=== PATIENT | female | born 1930 | race Caucasian/White ===

== ENCOUNTER 2017-05-22 14:36 | Observation (INO) | payer MEDICARE, BC ==
[~2017-05-22] VITALS: Ht 149.9 cm; Wt 49.9 kg
--- NOTE | ~2017-05-22 | CR72 ---
[facility] A Service of [facility] & [facility] RADIOLOGY TEXT RESULTS PATIENT: PARISH ZUNIGA LOCATION: [facility] 302- : [birth year] UNIT #: [id number] AGE: [address]: NEERU LAU MD SEX: F ORDER DR: [id number] [facility] [address] [place], [place] [address] [id number] MR#: [id number] Acc #: [id number] NAME: PARISH ZUNIGA. : 1930 SEX: F STUDY DATE/TIME: 05/22/2017 14:59 UNIT: [facility] ROOM: STUDY DESCRIPTION: CR Chest Single View Portable Attending Physician: Kai Brown M.D. Ordering Physician: Kai Brown M.D. Primary Care Physician: Lindsey Ramirez M.D. MEDICAL IMAGING REPORT This report is preliminary unless electronic signature is present EXAM Portable chest x-ray 05/22/2017 HISTORY Weakness, hypoxia, short of air. Found unresponsive at hair salon today. AP radiograph of the chest is presented. COMPARISON STUDIES Comparison 03/25/2017 FINDINGS No acute-appearing bony abnormality. Degenerative changes in the spine. Mild cardiac enlargement. Mildly tortuous descending thoracic aorta. The lungs well inflated. Ill-defined patchy densities right lower lung zone may represent atelectasis or mild pneumonitis. Given the patient's stated history, correlate with any concern for possible aspiration. There is no dense airspace disease, pleural effusion or pneumothorax. No suspicious nodule. Dictated by... Sergio Peck M.D. THIS IS AN ELECTRONICALLY VERIFIED REPORT Sergio Peck M.D. at 05/22/2017 6:31 PM Lesley TD: 05/22/2017 17:47 JOB #: [id number] MEDICAL IMAGING REPORT Page 1 of 1 COPY
--- NOTE | ~2017-05-22 | EKG ---
PATIENT: PARISH ZUNIGA UNIT #: [id number] Ventricular Rate: 85 BPM Atrial Rate: 85 BPM P-R Interval: 174 ms QRS Duration: 86 ms Q-T Interval: 384 ms QTC Calculation(Bezet): 456 ms P [place]: 31 degrees Calculated R [place]: 8 degrees Calculated T [place]: 52 degrees Diagnosis Line: Normal sinus rhythm Diagnosis Line: Low voltage QRS Diagnosis Line: Borderline ECG Diagnosis Line: No previous ECGs available Diagnosis Line: Confirmed by JAX HOWARD MD ([id number]) on Diagnosis Line: 05/23/2017 7:31:21 AM INTERPRETING MD: LEE PRESSLEY
--- NOTE | ~2017-05-22 | HP ---
Unit #: [id number] #: [id number] Patient: PARISH ZUNIGA [id number] [address] [address] [id number] I MR#: [id number] NAME: PARISH ZUNIGA. ROOM: 302 Age: 87 Sex: F Admission Date: 05/22/2017 : 1930 Attending Physician: Neeru Bolden M.D. Primary Care Physician: Lindsey Ramirez M.D. HISTORY AND PHYSICAL CHIEF COMPLAINT Altered mental status. HISTORY OF PRESENT ILLNESS The patient is an 87-year-old female with a history of hypertension and CAD brought to the emergency room from the [facility]. The patient was having her hair washed (1) and the patient became more unresponsive. The patient denies any loss of consciousness and denies any head trauma. The patient was found to have a UTI and acute renal failure and is being admitted for the above reasons. Patient denies any nausea, vomiting, abdominal pain, fever, or chills. Patient is confused and thinks her daughters are sisters. PAST MEDICAL HISTORY 1. Hypertension. 2. Coronary artery disease. PAST SURGICAL HISTORY 1. Cholecystectomy. 2. Right femur surgery. HOME MEDICATIONS 1. Cozaar. 2. Mobic. 3. Albuterol. 4. Vancomycin. 5. Gabapentin. 6. Lortab. 7. Lopressor. ALLERGIES No known drug allergies. SOCIAL HISTORY No history of smoking, drinking, or any illicit drug abuse. FAMILY HISTORY Reviewed and none. REVIEW OF SYSTEMS Patient is confused. She denies any nausea or vomiting. Patient was found to be hypotensive at the time of EMS arrival with blood pressure down to the 70s. Other systems were reviewed and the remaining are negative. Unit #: [id number] #: [id number] Patient: PARISH ZUNIGA PHYSICAL EXAMINATION GENERAL: Patient is lying in bed not in acute distress. VITAL SIGNS: Temperature 98.5, blood pressure 106/67, pulse 83, respiratory rate 15, and saturating 94% on room air. HEENT: Head atraumatic, normocephalic. Pupils equal, round, and reactive to light and accommodation. Dry mucous membranes. NECK: Supple. LUNGS: Decreased air entry at the bases. HEART: Regular rate and rhythm. ABDOMEN: Soft. Positive bowel sounds. EXTREMITIES: No cyanosis, no clubbing. NEUROLOGIC: Awake and alert. DIAGNOSTIC STUDIES LABORATORY: Glucose 118. Urinalysis is positive for 3+ leukocyte esterase, 1+ protein, 3+ blood, 100-200 urine RBCs, and enumerable urine WBCs. WBC 8.2, hemoglobin 12.2, hematocrit 37.1, and platelets 170,000. INR is 1. Ammonia is 23. Urine drug screen is positive for opiates. Sodium 139, potassium 4.1, chloride 106, bicarb 27, glucose 130, BUN 45, creatinine 1.5, calcium 8.6, and albumin 3.2. Lactic acid is 1.6. CARDIOLOGY: EKG shows normal sinus rhythm. ASSESSMENT 1. Altered mental status likely secondary to urinary tract infection. 2. Urinary tract infection. 3. Acute kidney injury. PLAN Admit the patient to observation with telemetry. Continue with IV Rocephin and continue with prophylactic p.o. vancomycin. Hold blood pressure medication. Continue with IV fluids of normal saline at 75 mL/hour. Hold narcotics. Repeat the labs again in the morning. Patient can have her own vancomycin after pharmacy verification, and further recommendations will follow as more lab results are available. Dictated by Estela Moya TD: 05/22/2017 20:06 JOB #: [id number] HISTORY AND PHYSICAL Page 1 of 1 X NEERU BOLDEN MD X HISTORY AND PHYSICAL
--- NOTE | ~2017-05-22 | CT71 ---
[facility] A Service of [facility] RADIOLOGY TEXT RESULTS PATIENT: PARISH ZUNIGA LOCATION: [facility] 302- : [birth year] UNIT #: [id number] AGE: [address]: Richie Millard MD SEX: F ORDER DR: [id number] [facility] [address] [place], [place] [address] [id number] I MR#: [id number] Acc #: [id number] NAME: PARISH ZUNIGA. : 1930 SEX: F STUDY DATE/TIME: 05/22/2017 15:31 UNIT: [address] ROOM: [facility] STUDY DESCRIPTION: CT Head Wo Contrast Attending Physician: Anahi Bolden M.D. Ordering Physician: Kai Brown M.D. Primary Care Physician: Lindsey Ramirez M.D. MEDICAL IMAGING REPORT This report is preliminary unless electronic signature is present EXAM CT of the head, 02/20/2017. HISTORY Hypertension, found unresponsive at hair salon. Confusion today. Weakness. TECHNIQUE CT head performed skull base through vertex without intravenous contrast. This CT exam was performed with one or more of the following radiation dose reduction techniques: automatic exposure control, adjustment of mA and/or kV according to patient size, and iterative reconstruction. COMPARISON 03/25/2016 FINDINGS The brainstem is unremarkable. Cerebellum and cerebral hemispheres show normal chatterjee matter-white matter differentiation. No hemorrhage. No indication of acute cortical ischemia. Extensive periventricular and deep white matter tract probable sequelae of chronic microvascular ischemia. Stable. Chronic lacunar infarct right globus pallidus. No acute-appearing basal ganglia abnormality. The midline structures are nondisplaced. The ventricles, cisterns and sulci show moderate generalized enlargement consistent with generalized atrophy. Extensive cavernous, carotid and distal vertebral arterial calcifications. The intraorbital soft tissues are unremarkable. There is no intra or extraaxial mass effect or abnormal intracranial fluid collection. Minimal mucosal thickening ethmoid and sphenoid sinuses. No fracture. IMPRESSION 1. No acute abnormality is seen in the brain. If the patient has ongoing neurologic symptoms, consider follow up imaging. [facility] A Service of [facility] RADIOLOGY TEXT RESULTS PATIENT: PARISH ZUNIGA LOCATION: [facility] 302-01 : [birth year] UNIT #: [id number] AGE: [address]: Richie Millard MD SEX: F ORDER DR: 2. Chronic findings include: Moderate generalized atrophy, extensive periventricular and deep white matter tract probable sequelae of chronic microvascular ischemia, chronic lacunar infarct right globus pallidus, vascular calcifications. 3. Minimal mucosal thickening ethmoid air cells and right sphenoid sinus. No clear indication of acute sinusitis. Dictated by... Sergio Peck M.D. THIS IS AN ELECTRONICALLY VERIFIED REPORT Sergio Peck M.D. at 05/23/2017 10:46 PM April TD: 05/22/2017 18:31 JOB #: [id number] MEDICAL IMAGING REPORT Page 1 of 1 COPY
--- NOTE | ~2017-05-22 | DS ---
Unit #: [id number] #: [id number] Patient: PARISH ZUNIGA [id number] [address] [place], [place] [address] [id number] I MR#: [id number] NAME: PARISH ZUNIGA. ROOM: 302 Age: 87 Sex: F Admission Date: 05/22/2017 : 1930 Discharge Date: 05/24/2017 Attending Physician: Richie Millard M.D. Primary Care Physician: Lindsey Ramirez M.D. DISCHARGE SUMMARY REASON FOR ADMISSION Altered mental status. HISTORY OF PRESENT ILLNESS/HOSPITAL COURSE The patient is a very pleasant 87-year-old female with prior history of hypertension, coronary artery disease, who was brought secondary to becoming unresponsive while getting her hair done. She was more confused. Her daughters were present throughout her hospital course, present at bedside. She was subsequently admitted. Routine laboratory studies were ascertained. Urine tox screen was ascertained which was positive for opiates to which she was prescribed. Cardiac enzymes were cycled and negative. CT head noncontrast was performed. It showed no acute process. Urine culture ultimately revealed yeast UTI. She did also undergo 2D echocardiogram which did reveal ejection fraction of 55% to 60%. Normal wall motion was noted. Grade 1 diastolic dysfunction was noted. Pevr-uo-gkzvalot tricuspid regurgitation was also noted. After review and discussion with patient's daughter's family who were present at the bedside, ultimately decision has been made for patient to be discharged home. It seems likely that her confusional episodes as well as questionable episodes of unresponsiveness are secondary to yeast UTI and/or urinary tract infections. She does have a prior history of hypertension to which her medications are detailed below. I have asked family members to only distribute and/or give her hydrocodone on a p.r.n. basis rather than a scheduled basis secondary to adverse side effects. At this point in time, the patient will be discharged home to the care of patient's daughters. It should be noted patient has not ambulated times greater than one year secondary to femur fracture with resultant postoperative complications. FINAL DISCHARGE DIAGNOSES 1. Syncopal episode. 2. Yeast urinary tract infection. 3. Hypertension. 4. Grade 1 diastolic dysfunction. 5. Prior history of coronary artery disease. FINAL DISCHARGE MEDICATIONS 1. Diflucan 100 mg p.o. daily x3 days. 2. Lopressor 25 mg p.o. b.i.d. 3. Cozaar 50 mg p.o. daily. DISCHARGE CONDITION Stable. Unit #: [id number] #: [id number] Patient: PARISH ZUNIGA DISCHARGE DISPOSITION Home. FOLLOWUP Followup PCP 7-10 days. Dictated by... Estela Tabor/christelle TD: 05/24/2017 16:13 JOB #: [id number] DISCHARGE SUMMARY Page 1 of 1 X Richie Millard MD X DISCHARGE SUMMARY
[~2017-05-22 14:36] MED LIST: ADVAIR; ASPIRIN81 MG; BACTRIM DS TABL1 TA1 PO; BENADRYL25 MG PO; COZAAR PO; MOTRIN400 MG
[2017-05-22 15:11] LABS: URINE SOURCE CLEAN CATCH
[2017-05-22 15:16] LABS: URINE APPEARANCE TURBID; URINE BILIRUBIN NEG (NEG); URINE BLOOD 3+ (NEG); URINE COLOR YELLOW; URINE GLUCOSE NEG (NEG); URINE KETONE NEG (NEG); URINE LEUKOCYTE ESTERASE 3+ (NEG); URINE NITRATE NEG (NEG); URINE PROTEIN 1+ (NEG); URINE SPECIFIC GRAVITY 1.019 (1.003-1.035); URINE UROBILINOGEN 0.2 MG/DL (NEG)
[2017-05-22 15:18] LABS: CULTURE INDICATED? YES; URBCS1 AUWI 100-200 /[HPF] (0-2); URINE BACTERIA AUWI NEG (NEGATIVE); URINE SQUAMOUS EPITHELIAL CELL MOD /[HPF]; UWBCS1 AUWI INNUM (0-5)
[2017-05-22 15:27] LABS: URINE MUCUS PRESENT; URINE YEAST PRESENT
[2017-05-22 15:35] LABS: BASOPHIL# 0.1 X10e3 (0-0.3); BASOPHIL% 0.6 % (0-2.5); EOSINOPHIL# 0.1 X10e3 (0-0.7); EOSINOPHIL% 1.7 % (0.0-7.0); HEMATOCRIT 37.1 % (35.0-45.0); HEMOGLOBIN 12.2 gm/dL (12.0-16.0); LYMPHOCYTE# 1.4 X10e3 (1.0-3.5); LYMPHOCYTE% 17.4 % (17.0-45.0); MEAN CELL VOLUME 93.8 FL (83-96); MEAN CORPUSCULAR HEMOGLOBIN 30.8 PG (28-34); MEAN CORPUSCULAR HGB CONC 32.8 g/dL (30-36); MEAN PLATELET VOLUME 8.1 FL (6.5-11.5); MONOCYTE# 0.6 X10e3 (0-1.0); MONOCYTE% 7.5 % (3.0-12.0); NEUTROPHIL% 72.8 % (40-75); PLATELET COUNT 170 X10e3 (140-420); RED BLOOD COUNT 3.96 X10e (3.90-5.30); RED CELL DISTRIBUTION WIDTH 14.1 % (11.0-15.5); WHITE BLOOD COUNT 8.2 X10e3 (4.0-10.5)
[2017-05-22 15:37] LABS: DIFF IND NO
[2017-05-22 15:49] LABS: PARTIAL THROMBOPLASTIN TIME 24.5 SECONDS (23.5-31.3); PROTHROMBIN TIME (PATIENT) 11.1 SECONDS (10.0-11.7)
[2017-05-22 15:55] LABS: AMPHETAMINE NEG (NEG); BARBITURATES NEG (NEG); BENZODIAZEPINES NEG (NEG); COCAINE NEG (NEG); MARIJUANA NEG (NEG); OPIATES POS (NEG); TRICYCLIC ANTIDEPRESSANTS NEG (NEG); U METHADONE NEG (NEG)
[2017-05-22 15:56] LABS: ALBUMIN SERUM 3.2 g/dL (3.5-5.0); BILIRUBIN, DIRECT 0.1 mg/dL (0.0-0.2); BILIRUBIN,INDIRECT 0.3 mg/dL (0.0-0.9); BILIRUBIN,TOTAL 0.4 mg/dL (0.2-2.0); CALCIUM SERUM 8.6 mg/dL (8.4-10.2); CREATININE SERUM 1.5 mg/dL (0.6-1.4); GLOM FILT RATE Estimated 30.8 mL/min (>60); POTASSIUM 4.1 mmol/L (3.5-5.1); PROTEIN TOTAL SERUM 6.5 g/dL (6.0-8.3)
[2017-05-22] MEDS ORDERED: LOPRESSOR PO (17:06)
[2017-05-22] MEDS ORDERED: LORTAB 5-325 M1 EACH PO (17:06)
[2017-05-22] MEDS ORDERED: GABAPENTIN400 M2 PO (17:06)
[2017-05-22] MEDS ORDERED: COZAAR PO (17:06)
[2017-05-22] MEDS ORDERED: PATIENT'S PHARMACY (17:06)
[2017-05-22] MEDS ORDERED: VANCOMYCIN HCL250 MG PO (17:06)
[2017-05-22] MEDS ORDERED: MOBIC PO (17:07)
[2017-05-22] MEDS ORDERED: PROAIR RESPICL90 MCG INH (17:07)
[2017-05-23 06:29] LABS: HEMOGLOBIN 11.9 gm/dL (12.0-16.0); MEAN CELL VOLUME 94.4 FL (83-96); MEAN CORPUSCULAR HEMOGLOBIN 31.1 PG (28-34); RED BLOOD COUNT 3.82 X10e (3.90-5.30); RED CELL DISTRIBUTION WIDTH 14.3 % (11.0-15.5); WHITE BLOOD COUNT 7.8 X10e3 (4.0-10.5)
[2017-05-23 07:37] LABS: CALCIUM SERUM 8.5 mg/dL (8.4-10.2); GLOM FILT RATE Estimated 50.3 mL/min (>60); POTASSIUM 4.3 mmol/L (3.5-5.1)
[2017-05-23 12:02] LABS: %MB 1.2 % (0.0-4.0); MB 1.1 ng/ml
[2017-05-23 17:00] LABS: %MB 1.3 % (0.0-4.0); MB 1.1 ng/ml
[2017-05-23 18:57] LABS: URINE APPEARANCE CLEAR; URINE BILIRUBIN NEG (NEG); URINE BLOOD TRACE (NEG); URINE COLOR YELLOW; URINE GLUCOSE NEG (NEG); URINE KETONE NEG (NEG); URINE LEUKOCYTE ESTERASE 2+ (NEG); URINE NITRATE NEG (NEG); URINE PROTEIN 1+ (NEG); URINE UROBILINOGEN 0.2 MG/DL (NEG)
[2017-05-23 18:59] LABS: CULTURE INDICATED? YES; URBCS1 AUWI 0-2 /[HPF] (0-2); URINE BACTERIA AUWI NEG (NEGATIVE); URINE SQUAMOUS EPITHELIAL CELL FEW /[HPF]; UWBCS1 AUWI 50-100 (0-5)
[2017-05-23 19:05] LABS: URINE YEAST PRESENT
[2017-05-24] MEDS ORDERED: ACETAMINOPHEN650 M1 PO (16:25)
[2017-05-24] MEDS ORDERED: DIFLUCAN PO (16:35)
== END 2017-05-24 17:41 | disposition home or self-care (01) ==
LOC: CED 14:36 → C3A PCU 17:10 → CED 18:25 → C3A PCU 18:27
PROVIDERS: Emergency Medicine; Family Medicine; Internal Medicine
DX: B37.49 Other urogenital candidiasis (principal); R55 Syncope and collapse; I07.1 Rheumatic tricuspid insufficiency; N28.9 Disorder of kidney and ureter, unspecified; I25.10 Atherosclerotic heart disease of native coronary artery without angina pectoris; I10 Essential (primary) hypertension; Z79.899 Other long term (current) drug therapy
CPT/HCPCS: 36415; 51701; 70450; 71010; 80048; 80076; 80307; 81003; 82140; 82550; 82553; 82947; 83605; 84484; 85025; 85027; 85610; 85730; 87086; 87493; 92610; 93005; 93306; 94640; 94760; 96374; 96375; 96376; 99285; G0378; G8996-GN; G8997-GN; G8998-GN; J0696; J2405

== ENCOUNTER 2017-06-04 21:52 | Inpatient (IN) | payer MEDICARE, BC ==
[~2017-06-04] VITALS: Ht 149.9 cm; Wt 50.1 kg
--- NOTE | ~2017-06-04 | EE ---
Unit #: [id number] #: [id number] Patient: PARISH ZUNIGA [id number] [address] [address] [id number] I MR#: [id number] NAME: PARISH ZUNIGA. : 1930 SEX: F STUDY DATE/TIME: 06/06/2017 UNIT: C3A PCU ROOM: 335 STUDY DESCRIPTION: Attending Physician: Bryanna Arambula M.D. Referring Physician: Lindsey Ramirez M.D. Primary Care Physician: Lindsey Ramirez M.D. NEURODIAGNOSTICS REPORT EXAM EEG report REASON FOR STUDY Syncope. EEG DESCRIPTION This is an inpatient, digitally recorded multimontage adult EEG with leads placed according to the International 10/20 system. Hyperventilation was not done but photic stimulation was attempted. FINDINGS This EEG does show 8-9 Hz posterior background and the patient then becomes drowsy and later on stage II sleep was seen. There was a period of DCT of what could be epileptiform discharges between C3 and P3, it was so periodic that I was concerned that it could be cardiac rhythm related but most of the time there is no correlation and I don't see anything of the sort on the right side. No clinical events were seen. Hyperventilation was not done. Photic stimulation was attempted in intermittent stepwise pattern up to the flash frequency of 30 Hz but I did not see any driving, asymmetry or paroxysmal activity. No clinical events were seen. IMPRESSION This is an abnormal adult awake and asleep EEG showing what looks like epileptiform discharges in the left temporal region. Please clinical correlate to the patient history and imaging studies. Dictated by... Estela Leal/ponce TD: 06/08/2017 16:02 JOB #: [id number] Unit #: [id number] #: [id number] Patient: PARISH ZUNIGA NEURODIAGNOSTICS REPORT Page 1 of 1 X Gabriele Donis MD NEURODIAGNOSTICS REPORT
--- NOTE | ~2017-06-04 | DS ---
Unit #: [id number] #: [id number] Patient: PARISH TEIXEIRA [id number] [address] [address] [id number] I MR#: [id number] NAME: PARISH TEIXEIRA. ROOM: 335 Age: 87 Sex: F Admission Date: 06/05/2017 : 1930 Discharge Date: 06/06/2017 Attending Physician: Bryanna Arambula M.D. Referring Physician: Lindsey Ramirez M.D. Primary Care Physician: Lindsey Ramirez M.D. DISCHARGE SUMMARY PRINCIPAL DIAGNOSES 1. Medication-induced hypotension. 2. Syncope secondary to #1. 3. 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 4. Paroxysmal atrial fibrillation, currently maintained in normal sinus rhythm and being placed on anticoagulation. 5. Chronic diastolic congestive heart failure with ejection fraction of 55% to 60%. 6. Chronic hypoxic respiratory failure maintained on 3 L of oxygen per nasal cannula at bedtime. 7. Chronic obstructive pulmonary disease. 8. Probable obstructive sleep apnea. 9. Hypomagnesemia. 10. Hypokalemia. 11. Chronic immobility. 12. Postherpetic trigeminal neuropathy. 13. Moderate protein malnutrition. CONSULTANTS Dr. Monroy, cardiology. PROCEDURES 1. EEG which is currently pending. 2. Bilateral carotid ultrasound on June 05, 2017 with no hemodynamically significant stenosis in either carotid artery. 3. Chest x-ray on June 04, 2017 with no acute findings. CLINICAL HISTORY AND HOSPITAL COURSE Miss Teixeira is an 87-year-old female who presents to the emergency department after having a transient decreased level of consciousness at home. The patient had two prior episodes, both of which were associated with hypotension. Blood pressure with this episode was also found to be low at 60/55 and she was tachycardic. Patient was placed on IV fluids. Antihypertensives were held and she was subsequently placed in observation. Cardiology evaluated the patient. Patient does have a history of paroxysmal afib/aflutter which may be contributing to her episodes of passing out. However at this time she is in normal sinus rhythm. She has been placed on low-dose Eliquis and will continue rate control otherwise. In regard to the patient's hypotension, again IV fluids were placed and Unit #: [id number] #: [id number] Patient: PARISH TEIXEIRA hypertension is resolved. 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 Patient did have an overnight pulse oximetry concerning for obstructive sleep apnea which I suspect is the case given her nocturnal hypoxia. She would benefit from overnight polysomnography in the home, if possible with insurance. I will defer this to Dr. Ramirez. 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 She has since then developed recurrent diarrhea and now has recurrent C. diff. Given she has had fecal transplant in the past, she has failed oral vancomycin, oral Flagyl in the past. Unfortunately Dificid is too expensive. I am going to try to get Xifaxan covered. I do think she is clinically stable, given only about three bowel movements a day, to go home but she needs appropriate antibiotic therapy. DISCHARGE CONDITION Stable. DISCHARGE STATUS Discharge to home. DISCHARGE MEDICATIONS 1. Xifaxan 200 mg p.o. b.i.d. for 14 days. 2. ProAir RespiClick two puffs q.i.d. p.r.n. for shortness of breath. 3. Advair 250/50 one puff daily. 4. Tylenol 650 mg p.o. q.6 h. p.r.n. for pain. 5. Magnesium oxide 400 mg p.o. b.i.d. for seven days. 6. Eliquis 2.5 mg b.i.d. 7. Neurontin 400 mg b.i.d. 8. Lortab 5/325 one tablet p.o. q.8 h. p.r.n. for pain. DISCHARGE INSTRUCTIONS 1. Patient was instructed to follow a regular diet. 2. She can increase her activity as tolerated but again she is essentially immobile and is cared for by family. FOLLOWUP 1. Patient should follow up with Dr. Ramirez next week. 2. She should follow up with gastroenterology at [facility] given her recurrent C. diff. and, unfortunately, high risk for antibiotic failure. Time spent on discharge today 47 minutes. Dictated by... Estela Acharya/benito TD: 06/06/2017 15:29 JOB #: [id number] Unit #: [id number] #: [id number] Patient: PARISH TEIXEIRA DISCHARGE SUMMARY Page 1 of 1 X Bryanna Arambula MD X DISCHARGE SUMMARY
--- NOTE | ~2017-06-04 | US37 ---
[facility] A Service of [facility] & [facility] RADIOLOGY TEXT RESULTS PATIENT: PARISH ZUNIGA LOCATION: [facility] 335- : [birth year] UNIT #: [id number] AGE: [address]: Bryanna Arambula MD SEX: F ORDER DR: [id number] [facility] [address] [place], [place] [address] [id number] I MR#: [id number] Acc #: [id number] NAME: PARISH ZUNIGA : 1930 SEX: F STUDY DATE/TIME: 06/05/2017 17:30 UNIT: [address] ROOM: [facility] STUDY DESCRIPTION: US Carotid W/Doppler Bilateral Attending Physician: Bryanna Arambula M.D. Referring Physician: Lindsey Ramirez M.D. Ordering Physician: Bryanna Aarmbula M.D. Primary Care Physician: Lindsey Ramirez M.D. MEDICAL IMAGING REPORT This report is preliminary unless electronic signature is present EXAM Carotid Doppler bilateral, 06/05/2017 HISTORY Syncope for 2 weeks, evaluate for carotid stenosis. FINDINGS Husain-scale carotid artery images were obtained as well as Doppler waveform spectral analysis and color flow Doppler imaging. The examination was interpreted according to NASCET criteria. There is no hemodynamically significant stenosis in either carotid artery. Peak systolic velocity in the right and left internal carotid arteries is 60 cm/sec and 66 cm/sec, respectively. Antegrade blood flow is seen in both vertebral arteries. There is mild plaque bilaterally. IMPRESSION No hemodynamically significant stenosis in either carotid artery. Dictated by... Twin Peterson M.D. THIS IS AN ELECTRONICALLY VERIFIED REPORT Twin Peterson M.D. at 06/06/2017 7:19 AM CHARLY/ike TD: 06/06/2017 00:26 JOB #: [id number] MEDICAL IMAGING REPORT Page 1 of 1 COPY
--- NOTE | ~2017-06-04 | HP ---
Unit #: [id number] #: [id number] Patient: PARISH ZUNIGA [id number] [address] [place], [place] [address] [id number] I MR#: [id number] NAME: PARISH ZUNIGA. ROOM: 335 Age: 87 Sex: F Admission Date: 06/05/2017 : 1930 Attending Physician: Daiana Choudhary M.D. Referring Physician: Lindsey Ramirez M.D. Primary Care Physician: Lindsey Ramirez M.D. HISTORY AND PHYSICAL CHIEF COMPLAINT Syncope. HISTORY This pleasant 87-year-old female with hypertension, postherpetic neuralgia, COPD, is admitted for syncope. Patient was last admitted 05/22/2017 through 05/24/2017 for altered mental status. She was found to have a UTI, which grew out yeast. There is some question that she had a syncopal episode, therefore, an echocardiogram was performed revealing an ejection fraction of 55% to 60% with grade 1 diastolic dysfunction. At the time of discharge she was told to decrease her Neurontin if possible. She was actually in her usual state of health until yesterday morning. She developed some diarrhea, was weaker throughout the day, nauseous, taking in very little p.o. Then last evening she had a transient episode of decreased level of consciousness, spell where she did respond, stared off in space. Her blood pressure was low at 60/55, her heart rate was 144. She was brought to this emergency department with initial blood pressure of 109/74. Initial heart rate of 141. EKG showed accelerated junctional rhythm, occasional PVC, heart rate 127. Patient was bolused a liter of saline, given Tylenol. Her urine shows significant pyuria, therefore, was given a g of Rocephin. She currently is feeling improved. She denies chest pain with above. PAST MEDICAL HISTORY 1. Recent admission for yeast, UTI and likely syncope. 2. Post herpetic trigeminal neuropathy. 3. History of recurrent C. difficile colitis. Patient requires p.o. vancomycin while on antibiotics. 4. Recent echo ejection fraction 55% to 60% with grade 1 diastolic dysfunction. 5. COPD. 6. Essential hypertension. 7. Cholecystectomy. 8. Right femur surgery. ALLERGIES No known drug allergies. HOME MEDICATIONS Neurontin 400 mg b.i.d. to t.i.d.; Advair 250/50 one puff b.i.d.; ProAir q.4 hours as needed; losartan 50 mg daily; Lopressor 25 mg b.i.d. Patient rarely takes [place] for pain. Unit #: [id number] #: [id number] Patient: PARISH ZUNIGA FAMILY HISTORY Noncontributory given patient's age. SOCIAL HISTORY The patient lives with her . Stopped smoking 30 years ago, seldom drinks alcohol. REVIEW OF SYSTEMS Somewhat difficult to obtain as patient herself is hard of hearing and is quite weak. Most of the history is obtained by family by bedside. PHYSICAL EXAMINATION Pleasant, frail appearing, 87-year-old, pale female, currently in no acute distress. VITAL SIGNS: Temperature 99.3, initial heart rate 141, current heart rate is 99, respirations 23, blood pressure 109/74, O2 saturation 93% on 2 L of oxygen. HEENT: Eyes - PERRLA, extraocular muscles are intact. Pharynx is benign. NECK: Supple without adenopathy or thyromegaly. CHEST: Clear. BACK: Without CVA tenderness. CARDIAC: Slightly tachy S1 and S2 without murmur. ABDOMEN: Bowel sounds are present, no hepatosplenomegaly, tenderness or masses. EXTREMITIES: Without clubbing, cyanosis or edema. Pedal pulses are diminished. NEUROLOGIC: Patient is awake, alert. Her cranial nerves are intact, except that she is a bit hard of hearing. She has equal strength throughout, is quite weak on exam; however, needs help just to turn over. DIAGNOSTIC STUDIES ADMISSION LABS: Hematocrit is 37.2, white blood count is 17.5, normal platelet count, 1 band. Normal coags. SMA 12 - glucose is 183, magnesium is 1.5, albumin is 2.9, lactic acid is 2.2. Cardiac markers are negative. Urinalysis - positive leukocyte esterase and protein with 100 to 200 white cells but no bacteria, 5-10 red cells. No yeast are noted at this time. IMAGING STUDIES: Chest x-ray stable, tortuous, thoracic aorta. CARDIOLOGY STUDIES: Accelerated junctional rhythm with PVCs rate about 130. ASSESSMENT 1. Syncope/spell. Patient had been experiencing some diarrhea today with nausea and weakness. During that episode that she had decreased level of consciousness, her blood pressure was noted to be low and she was tachycardic to the 140s. Her initial EKG in the ER looks like accelerated junctional rhythm. She currently is in normal sinus rhythm. No history of heart disease. Had a recent echo performed showing normal ejection fraction. 2. History of recurrent C. difficile colitis. Patient needs prophylactic vancomycin on antibiotics per [facility] infectious disease specialist. 3. Essential hypertension with low blood pressure. 4. Post herpetic trigeminal neuropathy on Neurontin. 5. Immobilization syndrome. 6. COPD. Unit #: [id number] #: [id number] Patient: PARISH ZUNIGA PLANS 1. Hold losartan. 2. Repeat EKG, cardiac enzymes in the morning, will consult cardiology. 3. Rocephin with prophylactic p.o. vancomycin pending urine cultures. 4. SCDs for DVT prophylaxis. 5. Continue p.o. Lopressor. Dictated by Daiana Choudhary M.D. AML/ts TD: 06/05/2017 05:46 JOB #: [id number] CC: 2u HISTORY AND PHYSICAL Page 1 of 1 X Daiana Choudhary MD X HISTORY AND PHYSICAL
--- NOTE | ~2017-06-04 | CO ---
Unit #: [id number] #: [id number] Patient: PARISH ZUNIGA [id number] [address] [place], [place] [address] [id number] I MR#: [id number] NAME: PARISH ZUNIGA ROOM: 335 Age: 87 Sex: F Admission Date: 06/05/2017 : 1930 Attending Physician: Bryanna Arambula M.D. Primary Care Physician: Lindsey Ramirez M.D. Consultation Date: 06/05/2017 CONSULTATION REPORT REASON FOR CONSULTATION Syncope. HISTORY OF PRESENT ILLNESS This is a pleasant 87-year-old elderly female with a past medical history of hypertension; COPD; recurrent C. diff colitis, status post fecal transplant; and postherpetic neuralgia. The patient was just recently in the hospital from 05/22/2017 through 05/24/2017 for altered mental status and a urinary tract infection. She lives at home with her . The family checks on her frequently. She states they had gone over to see her this morning and she was a little bit weak, but acting relatively as her normal self. However, as the day progressed, they went back to check on her for dinner and said she was sitting at the dinner table and just not eating well or acting quite right. She had a transient episode of loss of consciousness, but denied any chest pain, shortness of breath, or palpitations preceding the episode. The family states her eyes somewhat rolled back in her head and her neck slumped back, it only lasted a few seconds. Denies any reports of seizure activity or loss of bowel or bladder control. At that time, they were concerned and her blood pressure was also found to be low and brought her to the emergency room for evaluation. In the ER, her blood pressure was noted to be low at 60/55, her heart rate was in the 140s. EKG shows what may be paroxysmal atrial fibrillation or flutter with a rate of about 130. No acute ischemic changes noted. In the ER, she did receive a fluid bolus with 1 L of saline and also some Tylenol. Her urinalysis showed pyuria and she was started on antibiotics and urine culture is currently pending. The patient denies any past medical history of coronary artery disease, atrial fibrillation, or chest pain. We were asked to see for evaluation of the above. PAST MEDICAL HISTORY 1. Recurrent C. difficile colitis, status post fecal transplant in the past and postherpetic neuralgia. 2. Recurrent UTIs. 3. 2D echo shows LVEF of 55% to 60%. No significant valvular abnormalities. Grade 1 diastolic dysfunction. 4. COPD. 5. Hypertension. PAST SURGICAL HISTORY 1. Cholecystectomy. 2. Right femur surgery. Unit #: [id number] #: [id number] Patient: PARISH ZUNIGA ALLERGIES No known drug allergies. HOME MEDICATIONS Lortab 5/325 one tab p.o. q.8 hours p.r.n., Lopressor 25 mg p.o. b.i.d., Cozaar 50 mg p.o. daily, ProAir two puffs inhalation q.i.d. as needed, acetaminophen 650 mg every 6 hours p.r.n., Neurontin 400 mg p.o. t.i.d., and Advair 250/50 one puff inhalation daily. FAMILY HISTORY Noncontributory secondary to the patient's advanced age. SOCIAL HISTORY The patient lives with her . She has children who check on her daily. She has a history of remote tobacco use, quit approximately 25 to 30 years ago. Reports rare use of alcohol. Denies illicit drugs. REVIEW OF SYSTEMS Reviewed and negative except for what was stated above in the HPI. PHYSICAL EXAMINATION GENERAL: This is a pleasant elderly frail 87-year-old female, currently in no acute distress. VITAL SIGNS: Temperature 98.7, respiratory rate is 16 to 18, pulse is 116, and blood pressure 104/71. HEENT: Head is atraumatic and normocephalic. Pupils are equal and round. Mucous membranes are dry. NECK: Trachea is midline. No lymphadenopathy or JVD. Carotid upstrokes appear normal. CARDIOVASCULAR: S1 and S2. No murmurs, gallops, or rubs. LUNGS: Clear to auscultation. No adventitious breath sounds. No rales, no rhonchi, no wheezes. ABDOMEN: Soft, nontender, and nondistended. Bowel sounds are present. EXTREMITIES: No clubbing, cyanosis, or edema. Pulses are palpable, but weak. NEUROLOGIC: The patient is drowsy today, but does awaken. She is able to follow commands and move extremities. According to the family, the patient has not ambulated for the past 2 years. She is primarily wheelchair bound. DIAGNOSTIC STUDIES LABORATORY RESULTS: Sodium 139, potassium 3.8, chloride 104, CO2 of 27, BUN 22, creatinine 1.1, and glucose 183. Troponins have been negative. Hemoglobin of 11.0, hematocrit 33.3, white count 9.8, and platelets 140. Magnesium was 1.5. IMAGING STUDIES: Chest x-ray, no fluid. Evidence of volume overload. Torturous thoracic aorta, which is stable. CARDIOVASCULAR STUDIES: EKG; atrial fibrillation/flutter, rate of 130 beats per minute. No acute ischemic changes noted. Occasional PVC. ASSESSMENT 1. Questionable syncopal episode versus presyncope. 2. Hypotension. 3. Possible urinary tract infection. 4. Weakness and immobility syndrome. 5. Left ventricular ejection fraction of 55% to 60% with grade 1 Unit #: [id number] #: [id number] Patient: PARISH ZUNIGA diastolic dysfunction, recent. 6. Chronic obstructive pulmonary disease, on home O2. 7. Questionable paroxysmal atrial fibrillation/flutter, now in normal sinus rhythm. 8. History recurrent Clostridium difficile colitis. 9. History of postherpetic trigeminal neuropathy. PLAN We have been asked to see the patient for her syncopal episode. It is unclear if it is truly a syncopal episode versus a presyncopal event. The patient, however, was hypotensive, and on arrival to the emergency room, she was noted to be in what appears to be atrial fibrillation/flutter in the rate of 130s to 140s. Cardiac enzymes have been negative. It is very possible that the patient has underlying conduction abnormality secondary to her advanced age. We will need to rule out any cardiogenic syncopal episodes. We will check orthostatic blood pressures. Continue to hold her Cozaar and also check a TSH level. We would also recommend carotid Dopplers bilateral as well as overnight oximetry on room air. If the patient is having paroxysmal atrial fibrillation/flutter, she would need to be anticoagulated. It does appear her CHADS-VASc is approximately 4. The patient is nonambulatory, so her risk of fall is significantly decreased. We would recommend starting Eliquis 2.5 mg p.o. b.i.d. At this time, we will hold her Lopressor and monitor her heart rhythm. She may need an event recorder at discharge. Further recommendations pending Dr. Monroy' assessment. Dictated by... Nilda Daley A.P.R.N. for Estela Villa/nivia TD: 06/06/2017 11:33 JOB #: [id number] CONSULTATION REPORT Page 1 of 1 X Nilda Daley APRN X CONSULTATION REPORT
--- NOTE | ~2017-06-04 | EKG ---
PATIENT: PARISH ZUNIGA UNIT #: [id number] Ventricular Rate: 127 BPM Atrial Rate: 32 BPM QRS Duration: 82 ms Q-T Interval: 330 ms QTC Calculation(Bezet): 479 ms Calculated R [place]: 35 degrees Calculated T [place]: 176 degrees Diagnosis Line: Accelerated Junctional rhythm with occasional Diagnosis Line: Premature ventricular complexes Diagnosis Line: Nonspecific ST and T wave abnormality Diagnosis Line: Abnormal ECG Diagnosis Line: No previous ECGs available Diagnosis Line: Confirmed by FELIX ALICIA MD ([id number]) on 06/05/2017 Diagnosis Line: 7:16:03 PM INTERPRETING MD: RAVIN PRESSLEY
--- NOTE | ~2017-06-04 | EKG ---
PATIENT: PARISH ZUNIGA UNIT #: [id number] Ventricular Rate: 85 BPM Atrial Rate: 85 BPM P-R Interval: 184 ms QRS Duration: 86 ms Q-T Interval: 394 ms QTC Calculation(Bezet): 468 ms P [place]: 56 degrees Calculated R [place]: 2 degrees Calculated T [place]: 48 degrees Diagnosis Line: Normal sinus rhythm Diagnosis Line: Normal ECG Diagnosis Line: When compared with ECG of 04-JUN-2017 22:14, Diagnosis Line: (unconfirmed) Diagnosis Line: Sinus rhythm has replaced Junctional rhythm Diagnosis Line: Vent. rate has decreased BY 42 BPM Diagnosis Line: ST no longer depressed in Inferior leads Diagnosis Line: Non-specific change in ST segment in Anterior Diagnosis Line: leads Diagnosis Line: T wave inversion no longer evident in Inferior Diagnosis Line: leads Diagnosis Line: Nonspecific T wave abnormality no longer evident Diagnosis Line: in Lateral leads Diagnosis Line: Confirmed by FELIX ALICIA MD ([id number]) on 06/05/2017 Diagnosis Line: 7:24:03 PM INTERPRETING MD: RAVIN PRESSLEY
--- NOTE | ~2017-06-04 | CR72 ---
[facility] A Service of [facility] & [facility] RADIOLOGY TEXT RESULTS PATIENT: PARISH ZUNIGA LOCATION: [facility] 335- : [birth year] UNIT #: [id number] AGE: [address]: Bryanna Arambula MD SEX: F ORDER DR: [id number] [facility] [address] [place], [place] [address] [id number] I MR#: [id number] Acc #: [id number] NAME: PARISH ZUNIGA : 1930 SEX: F STUDY DATE/TIME: 06/04/2017 22:21 UNIT: [address] ROOM: [facility] STUDY DESCRIPTION: CR Chest Single View Portable Attending Physician: Bryanna Arambula M.D. Referring Physician: Lindsey Ramirez M.D. Ordering Physician: William Jameson M.D. Primary Care Physician: Lindsey Ramirez M.D. MEDICAL IMAGING REPORT This report is preliminary unless electronic signature is present EXAM Chest x-ray, 06/04/2017. HISTORY 87-year-old female in the ED complaining of new onset shortness of air, cough and weakness beginning 1 day prior. TECHNIQUE AP portable chest x-ray. FINDINGS The lungs are expanded and clear today. Mild right basilar infiltrate present on 05/22/2017 is no longer seen. There is no pleural effusion. Heart size and pulmonary vascularity are normal. Stable tortuous thoracic aorta. IMPRESSION No active disease. Dictated by... Anupam Gutiérrez M.D. THIS IS AN ELECTRONICALLY VERIFIED REPORT Anupam Gutiérrez M.D. at 06/05/2017 9:57 PM RGW/michael TD: 06/05/2017 09:44 JOB #: [id number] MEDICAL IMAGING REPORT Page 1 of 1 COPY
--- NOTE | ~2017-06-04 | DS ---
Unit #: [id number] #: [id number] Patient: PARISH ZUNIGA [id number] [address] [address] [id number] I MR#: [id number] NAME: PARISH ZUNIGA ROOM: 335 Age: 87 Sex: F Admission Date: 06/05/2017 : 1930 Discharge Date: 06/06/2017 Attending Physician: Bryanna Arambula M.D. Referring Physician: Lindsey Ramirez M.D. Primary Care Physician: Lindsey Ramirez M.D. DISCHARGE SUMMARY ADDENDUM Please note - unfortunately, Xifaxan was not covered for C. diff for this patient. She was given a ten day course of oral vancomycin. Dictated by... Estela Acharya/griselda TD: 06/09/2017 07:19 JOB #: [id number] DISCHARGE SUMMARY Page 1 of 1 X Bryanna Arambula MD X DISCHARGE SUMMARY
--- NOTE | ~2017-06-04 | DS ---
Unit #: [id number] #: [id number] Patient: PARISH ZUNIGA [id number] [address] [address] [id number] I MR#: [id number] NAME: PARISH ZUNIGA ROOM: 335 Age: 87 Sex: F Admission Date: 06/05/2017 : 1930 Discharge Date: 06/06/2017 Attending Physician: Bryanna Arambula M.D. Referring Physician: Lindsey Ramirez M.D. Primary Care Physician: Lindsey Ramirez M.D. DISCHARGE SUMMARY ADDENDUM HOSPITAL COURSE I was contacted by Dr. Donis this morning. The patient's EEG was abnormal. It does appear she has a seizure focus. I discussed these findings with the patient's daughter earlier today. I have called in a prescription for Keppra 500 mg p.o. b.i.d. to [facility] on [facility], phone number is [phone]. I have also provided one refill. On an outpatient basis the patient needs outpatient MRI of the brain to rule out any sort of other anatomic abnormality leading to seizure and she needs to be seen by Dr. Gilmer Torres of outpatient neurology. Dictated by... Bryanna Arambula M.D. HARMAN/catrachita TD: 06/09/2017 09:55 JOB #: [id number] DISCHARGE SUMMARY Page 1 of 1 X Bryanna Arambula MD X DISCHARGE SUMMARY
[~2017-06-04 21:52] MED LIST changes: +ACETAMINOPHEN650 M1 PO; +DIFLUCAN PO; +GABAPENTIN400 M2 PO; +LOPRESSOR PO; +LORTAB 5-325 M1 EACH PO; +MOBIC PO; +PATIENT'S PHARMACY; +PROAIR RESPICL90 MCG INH; +VANCOMYCIN HCL250 MG PO
[2017-06-04 22:24] LABS: POC - CKMB <1.0 ng/mL (0.0-7.9); POC - TROPONIN <0.05 ng/mL (<=0.05)
[2017-06-04 22:26] LABS: BASOPHIL# 0.1 X10e3 (0-0.3); BASOPHIL% 0.4 % (0-2.5); EOSINOPHIL% 0.2 % (0.0-7.0); HEMATOCRIT 37.2 % (35.0-45.0); HEMOGLOBIN 12.1 gm/dL (12.0-16.0); LYMPHOCYTE# 1.7 X10e3 (1.0-3.5); LYMPHOCYTE% 9.6 % (17.0-45.0); MEAN CELL VOLUME 92.7 FL (83-96); MEAN CORPUSCULAR HEMOGLOBIN 30.2 PG (28-34); MEAN CORPUSCULAR HGB CONC 32.6 g/dL (30-36); MEAN PLATELET VOLUME 8.3 FL (6.5-11.5); MONOCYTE# 0.8 X10e3 (0-1.0); MONOCYTE% 4.7 % (3.0-12.0); NEUTROPHIL# 14.9 X10e3 (1.5-7.1); NEUTROPHIL% 85.1 % (40-75); PLATELET COUNT 208 X10e3 (140-420); RED BLOOD COUNT 4.02 X10e (3.90-5.30); RED CELL DISTRIBUTION WIDTH 13.9 % (11.0-15.5); WHITE BLOOD COUNT 17.5 X10e3 (4.0-10.5)
[2017-06-04 22:27] LABS: DIFF IND YES
[2017-06-04 22:37] LABS: INR 1.1; PARTIAL THROMBOPLASTIN TIME 26.5 SECONDS (23.5-31.3); PROTHROMBIN TIME (PATIENT) 11.8 SECONDS (10.0-11.7)
[2017-06-04 22:41] LABS: URINE APPEARANCE CLOUDY; URINE BILIRUBIN NEG (NEG); URINE BLOOD NEG (NEG); URINE COLOR YELLOW; URINE GLUCOSE NEG (NEG); URINE KETONE TRACE (NEG); URINE LEUKOCYTE ESTERASE 3+ (NEG); URINE NITRATE NEG (NEG); URINE PROTEIN 1+ (NEG); URINE SPECIFIC GRAVITY 1.021 (1.003-1.035); URINE UROBILINOGEN 0.2 MG/DL (NEG)
[2017-06-04 22:44] LABS: CULTURE INDICATED? YES; URINE BACTERIA AUWI NEG (NEGATIVE); URINE SQUAMOUS EPITHELIAL CELL OCC /[HPF]; UWBCS1 AUWI 100-200 (0-5)
[2017-06-04 22:52] LABS: ALBUMIN SERUM 2.9 g/dL (3.5-5.0); BILIRUBIN, DIRECT 0.1 mg/dL (0.0-0.2); BILIRUBIN,INDIRECT 0.6 mg/dL (0.0-0.9); BILIRUBIN,TOTAL 0.7 mg/dL (0.2-2.0); CALCIUM SERUM 8.4 mg/dL (8.4-10.2); CREATININE SERUM 1.1 mg/dL (0.6-1.4); GLOM FILT RATE Estimated 44.8 mL/min (>60); MAGNESIUM 1.5 mg/dL (1.6-3.0); PHOSPHOROUS 3.3 mg/dL (2.5-4.6); POTASSIUM 3.8 mmol/L (3.5-5.1); PROTEIN TOTAL SERUM 6.4 g/dL (6.0-8.3)
[2017-06-04 23:06] LABS: URINE GRANULAR CAST 0-2 /[HPF]
[2017-06-04 23:22] LABS: ANISOCYTOSIS SL; OVALOCYTES PRESENT; PLATELET ESTIMATE NORMAL (NORMAL)
[2017-06-05] MEDS ORDERED: NEURONTIN PO (01:12)
[2017-06-05] MEDS ORDERED: ADVAIR 250-501 EAC1 INH (01:15)
[2017-06-05 08:15] LABS: BASOPHIL% 0.3 % (0-2.5); EOSINOPHIL# 0.1 X10e3 (0-0.7); EOSINOPHIL% 0.6 % (0.0-7.0); HEMATOCRIT 33.3 % (35.0-45.0); LYMPHOCYTE# 0.9 X10e3 (1.0-3.5); LYMPHOCYTE% 9.3 % (17.0-45.0); MEAN CELL VOLUME 94.1 FL (83-96); MEAN CORPUSCULAR HGB CONC 32.9 g/dL (30-36); MEAN PLATELET VOLUME 7.7 FL (6.5-11.5); MONOCYTE# 0.9 X10e3 (0-1.0); MONOCYTE% 9.4 % (3.0-12.0); NEUTROPHIL# 7.9 X10e3 (1.5-7.1); NEUTROPHIL% 80.4 % (40-75); PLATELET COUNT 140 X10e3 (140-420); RED BLOOD COUNT 3.54 X10e (3.90-5.30); RED CELL DISTRIBUTION WIDTH 13.7 % (11.0-15.5); WHITE BLOOD COUNT 9.8 X10e3 (4.0-10.5)
[2017-06-05 08:16] LABS: DIFF IND NO
[2017-06-05 08:48] LABS: CALCIUM SERUM 7.7 mg/dL (8.4-10.2); GLOM FILT RATE Estimated 50.3 mL/min (>60); POTASSIUM 3.5 mmol/L (3.5-5.1)
[2017-06-06 04:38] LABS: BUN/CREATININE RATIO 24.28; CALCIUM SERUM 8.1 mg/dL (8.4-10.2); CREATININE SERUM 0.7 mg/dL (0.6-1.4); GLOM FILT RATE Estimated 77.4 mL/min (>60); MAGNESIUM 1.5 mg/dL (1.6-3.0); POTASSIUM 3.4 mmol/L (3.5-5.1)
[2017-06-06] MEDS ORDERED: ADVAIR 250-501 EACH INH (16:48)
[2017-06-06] MEDS ORDERED: MAGNESIUM400 M1 PO (16:49)
[2017-06-06] MEDS ORDERED: GABAPENTIN400 MG PO (16:49)
[2017-06-06] MEDS ORDERED: ELIQUIS2.5 MG PO (16:49)
[2017-06-06] MEDS ORDERED: XIFAXAN550 MG PO (16:50)
[2017-06-06] MEDS ORDERED: VANCOMYCIN HCL125 MG PO (16:51)
== END 2017-06-06 18:46 | disposition home or self-care (01) | DRG 101 ==
LOC: CED 21:52 → CEDOF 06-05 00:15 → CED 06-05 00:20 → CEDOF 06-05 00:20 → C3A PCU 06-05 01:05 → CEDOF 06-05 01:05 → C3A PCU 06-05 08:46
PROVIDERS: Emergency Medicine; Internal Medicine
DX: G40.89 Other seizures (principal); A04.7 Enterocolitis due to Clostridium difficile; J96.10 Chronic respiratory failure, unspecified whether with hypoxia or hypercapnia; E44.0 Moderate protein-calorie malnutrition; B02.22 Postherpetic trigeminal neuralgia; I95.2 Hypotension due to drugs; I11.0 Hypertensive heart disease with heart failure; I50.32 Chronic diastolic (congestive) heart failure; I48.0 Paroxysmal atrial fibrillation; E83.42 Hypomagnesemia; R55 Syncope and collapse; T46.5X5A Adverse effect of other antihypertensive drugs, initial encounter; Y92.9 Unspecified place or not applicable; M62.3 Immobility syndrome (paraplegic); J44.9 Chronic obstructive pulmonary disease, unspecified; G47.33 Obstructive sleep apnea (adult) (pediatric); E87.6 Hypokalemia; Z68.21 Body mass index [BMI] 21.0-21.9, adult; Z90.49 Acquired absence of other specified parts of digestive tract; Z87.440 Personal history of urinary (tract) infections
CPT/HCPCS: 36415; 51701; 71010; 80048; 80076; 81003; 82550; 82553; 82947; 83605; 83690; 83735; 84100; 84443; 84484; 85025; 85610; 85730; 87040; 87086; 87493; 93005; 93880; 94760; 95816; 96360; 99285; J0696; J3475

== ENCOUNTER 2017-06-13 17:07 | Inpatient (IN) | payer MEDICARE, BC ==
[~2017-06-13] VITALS: Ht 149.9 cm; Wt 53.5 kg
--- NOTE | ~2017-06-13 | DS ---
Unit #: [id number] #: [id number] Patient: PARISH ZUNIGA [id number] [address] [place], [place] [address] [id number] Ariel MR#: [id number] NAME: PARISH ZUNIGA. ROOM: 220 Age: 87 Sex: F Admission Date: 06/13/2017 : 1930 Discharge Date: 06/19/2017 Attending Physician: Bryanna Arambula M.D. Primary Care Physician: Lindsey Ramirez M.D. DISCHARGE SUMMARY ADDENDUM HOSPITAL COURSE I was contacted by Eleanor Andrade of [employer] regarding coverage of patient's Vimpat. According to family, she has been doing quite well on Vimpat, but unfortunately, she does not qualify for patient assistance given her income. This has been discussed with family by [facility], and they would like the cheaper alternative. I attempted to contact the family both on June 25 and again on June 28 regarding adjustment in medication, i.e., instructions and discussion of medication, but they have yet to return my phone call. I did call in a prescription for Trileptal 150 mg 1 tablet p.o. b.i.d. for 7 days, then to be increased to 2 tablets p.o. b.i.d. for remaining 21 days and then a subsequent 2 months of Trileptal 300 mg p.o. b.i.d. Again, I will continue to try to contact the family, but I have been unable to contact them at the phone number provided in [employer], which is [phone]. Dictated by... Bryanna Arambula M.D. HARMAN/isac TD: 06/30/2017 19:40 JOB #: [id number] DISCHARGE SUMMARY Page 1 of 1 X Bryanna Arambula MD DISCHARGE SUMMARY
--- NOTE | ~2017-06-13 | CR213 ---
[facility] A Service of [facility] RADIOLOGY TEXT RESULTS PATIENT: PARISH ZUNIGA LOCATION: [place] [address] : [birth year] UNIT #: [id number] AGE: [address]: Kaylynn Salmon MD SEX: F ORDER DR: [id number] [facility] [address] [place], [place] [address] [id number] I MR#: [id number] Acc #: [id number] NAME: PARISH ZUNIGA. : 1930 SEX: F STUDY DATE/TIME: 06/14/2017 21:31 UNIT: [facility] ROOM: [facility] STUDY DESCRIPTION: CR Ribs Unilateral 2 View Rt Attending Physician: Kaylynn Salmon M.D. Ordering Physician: Carley Robin M.D. Primary Care Physician: Lindsey Ramirez M.D. MEDICAL IMAGING REPORT This report is preliminary unless electronic signature is present EXAM PA chest with right rib detail series (6 images total). DATE 06/14/2017 HISTORY Right side rib and chest pain since yesterday. COMPARISON AP portable chest, 06/13/2017. FINDINGS There is a questionable noncalcified nodular density in the right upper lobe measuring about a centimeter. No acute consolidations are identified. Benign calcified granulomatous changes in the left hilum. Stable mild cardiac enlargement and thoracic aortic ectasia and tortuosity. No pleural effusion or pneumothorax is seen. Osteopenic changes are present and there are degenerative changes of the right shoulder. No acute displaced right rib fracture is seen. Presumed cholecystectomy clips in the right upper quadrant of the abdomen. IMPRESSION 1. No acute displaced right rib fracture. 2. Questionable subcentimeter nodular density in the right upper lobe. Infectious-inflammatory etiology should be considered, given that it appears to be a new finding since the more remote chest radiograph of 05/22/2017. Continued radiographic followup to document resolution recommended. 3. Benign granulomatous changes. 4. Stable cardiomegaly and thoracic aortic ectasia. [facility] A Service of [facility] RADIOLOGY TEXT RESULTS PATIENT: PARISH ZUNIGA LOCATION: [facility] [id number] : [birth year] UNIT #: [id number] AGE: [address]: Kaylynn Salmon MD SEX: F ORDER DR: Dictated by... Angeli Schuster M.D. THIS IS AN ELECTRONICALLY VERIFIED REPORT Angeli Schuster M.D. at 06/15/2017 2:03 PM [facility]/michael TD: 06/15/2017 07:47 JOB #: [id number] MEDICAL IMAGING REPORT Page 1 of 1 COPY
--- NOTE | ~2017-06-13 | EKG ---
PATIENT: PARISH ZUNIGA UNIT #: [id number] Ventricular Rate: 111 BPM Atrial Rate: 111 BPM P-R Interval: 170 ms QRS Duration: 84 ms Q-T Interval: 342 ms QTC Calculation(Bezet): 465 ms P [place]: 65 degrees Calculated R [place]: 0 degrees Calculated T [place]: 79 degrees Diagnosis Line: Sinus tachycardia Diagnosis Line: Otherwise normal ECG Diagnosis Line: No previous ECGs available Diagnosis Line: Confirmed by RACHEL JETER MD ([id number]) on Diagnosis Line: 06/15/2017 4:46:05 PM INTERPRETING MD: HARI
--- NOTE | ~2017-06-13 | CR72 ---
[facility] A Service of [facility] RADIOLOGY TEXT RESULTS PATIENT: PARISH ZUNIGA LOCATION: [place] [address] : [birth year] UNIT #: [id number] AGE: [address]: Carley Robin MD SEX: F ORDER DR: [id number] [facility] [address] [place], [place] [address] [id number] I MR#: [id number] Acc #: [id number] NAME: PARISH ZUNIGA : 1930 SEX: F STUDY DATE/TIME: 06/13/2017 17:50 UNIT: [facility] ROOM: [facility] STUDY DESCRIPTION: CR Chest Single View Portable Attending Physician: Carley Robin M.D. Ordering Physician: Dave Bartlett M.D. Primary Care Physician: Lindsey Ramirez M.D. MEDICAL IMAGING REPORT This report is preliminary unless electronic signature is present EXAM Portable chest. HISTORY Shortness of air today. FINDINGS Cardiac size and pulmonary vascularity are within normal limits. Mildly tortuous descending thoracic aorta. No airspace infiltrates or effusions. Small calcified left hilar nodes. Minimal mid-right thoracic curve. IMPRESSION No acute findings. Dictated by... Esteban Villegas M.D. THIS IS AN ELECTRONICALLY VERIFIED REPORT Esteban Villegas M.D. at 06/14/2017 12:03 PM DFL/purvi TD: 06/14/2017 09:27 JOB #: [id number] MEDICAL IMAGING REPORT Page 1 of 1 COPY
--- NOTE | ~2017-06-13 | A ---
[facility] Nutrition Therapy DATE: 06/18/17 Patient: PARISH ZUNIGA Physician: REYMUNDO Address: [address] [place] [address] IMELDA Room/Bed: [address] [place] [address], Zip: [place] [address] Admit Date: 06/13/17 Date of : [birth year] Height: 4 11 Weight: 117 53.5 NUTRITIONAL ASSESSMENT: REASON: NPO x 5 days Admitting dx: 87 y/o female admitted with AMS PMH: PAF, CHF, COPD, chronic immobility, recurrent c. diff Anthropometrics: Ht: 59", Wt: 117 lbs, BMI: 23.6 (normal) Past weight range: 108-119 lbs (2017) Labs: K+ 3.0 Meds: IVF @ 75 ml/hr, kcl, mgso4, nacl, D5, zofran prn I/O & Bowel function: BM 06/17 (small, loose) Skin Integrity: issues noted, pitting edema BLE, generalized edema BUE Assessment: Chart reviewed, events noted. See admitting dx and PMH as stated above. RD assessing due to NPO status x 5 days. Physical chart unavailable at this time. Spoke with RN who states the patient has failed swallow evals. 0 points scored on the malnutrition risk screen, weight stable per past weights. Per patients daughter she is going to have a video swallow done tomorrow and Dr. Arambula thinks she will be ok for soft/chopped foods when alert. The patient is not appropriate for a feeding tube per Dr. Arambula. Encouraged patients daughter to ask to speak with RD if she has any questions regarding the patients diet or oral supplements if she passes her video swallow prior to discharge. She is on 2L nasal cannula. See recs below, will follow hospital course. Dx: Inadequate energy intake r/t dysphagia AEB NPO x 5 days. Intervention: PO diet per ACROBATIC DANCER Monitoring, Evaluation and Goals: 1. Tolerance of oral diet advancement with no c/o chewing/swallowing difficulties. 2. Lytes WNL. 3. Prevent unintentional weight loss. Monitor: per protocol, criteria to determine if above goals met Recommendations: [facility] Nutrition Therapy DATE: 06/18/17 Patient: PARISH ZUNIGA Physician: REYMUNDO Address: [address] [place] [address] Room/Bed: 8-01 [facility], Zip: [place] [address] Admit Date: 06/13/17 Date of : [birth year] Height: 4 11 Weight: 117 53.5 1. PO diet per ACROBATIC DANCER only for safety. If oral diet is advanced after video swallow tomorrow and patient is started on a PO diet, she may benefit from oral nutrition supplements. Recs are as follows: Ensure Enlive BID if appropriate for thin liquids Ensure pudding or magic cup BID if appropriate for thickened liquids (NTL or HTL) 2. If the patient fails the video swallow eval and enteral nutition is desired please consult dietitian for recs. Patients daughter states Dr. Arambula does not want the patient to have a feeding tube at this time. 3. Replace lytes prn. 4. Please weigh q 3 days for monitoring purposes. RD will follow Moderate nutrition risk Respectfully, Florencia Rubalcava, IMELDA, LE Food and Nutritional Services [facility] cc: client file
--- NOTE | ~2017-06-13 | CO ---
Unit #: [id number] #: [id number] Patient: PARISH ZUNIGA [id number] [facility] [address] [facility]. [place], [place] [address] [id number] MR#: [id number] NAME: PARISH ZUNIGA. ROOM: 558 Age: 87 Sex: F Admission Date: 06/13/2017 : 1930 Attending Physician: Bryanna Arambula M.D. Primary Care Physician: Lindsey Ramirez M.D. Consultation Date: 06/14/2017 CONSULTATION REPORT REASON FOR CONSULTATION Possible seizures. PATIENT IDENTIFICATION This is an 87-year-old, right-handed, white female, who was evaluated in room 558 at [facility]. SOURCE OF INFORMATION The medical records and my discussion with the team and also the patient's family. PROBLEM LIST 1. This patient was initially admitted on the and discharged on the . Her admission diagnoses were medication-induced hypertension and syncope, which was initially thought was secondary to that and she had recurrent C. difficile and also she had paroxysmal atrial fibrillation. Currently, maintained on normal sinus rhythm and was started on anticoagulation. 2. She has chronic diastolic congestive heart failure. 3. Chronic hypoxic respiratory failure. 4. COPD. 5. Probable obstructive sleep apnea. 6. Hypomagnesemia. 7. Hypokalemia. 8. 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 Arambula and she was started on Keppra and recommended MRI to be done. HISTORY OF PRESENT ILLNESS She came in yesterday with a fever of 102 plus and sort of unresponsive. Initial concern was nonconvulsive status. She was treated aggressively. She was given more Keppra and I started her on Vimpat. She is now responding, moaning, groaning, looking around, but she is not talking. Her CT shows significant atrophy, but she is not febrile anymore though she is on antibiotics and she has done fairly well, but she is not communicating but there is no stroke or other issues. Her EEG was abnormal with more left-sided discharges, but the MRI does not show anything acute. She is now being checked for infection. PAST MEDICAL HISTORY Unit #: [id number] #: [id number] Patient: PARISH ZUNIGA As discussed above. PAST SURGICAL HISTORY Cholecystectomy and right femur surgery. ALLERGIES None. HOME MEDICATIONS ProAir 2 puffs q.i.d. p.r.n., Advair 250/50 one puff daily, Tylenol 650 mg q.6 p.r.n., magnesium 400 mg b.i.d. for 7 days, Eliquis 2.5 mg b.i.d., Neurontin 400 mg b.i.d., Lortab 5/325 q.8 p.r.n., Keppra 500 mg b.i.d., and now she is on vancomycin. FAMILY HISTORY Noncontributory secondary to age. SOCIAL HISTORY Apparently, she is . She has been through significant rehab. Now she is at home. She is a previous smoker. Good family support. REVIEW OF SYSTEMS Could not be obtained because of her present confused state. PHYSICAL EXAMINATION VITAL SIGNS: Temperature 98.1, T-max was 102.9; pulse is 102; respirations 24; blood pressure 144/86; O2 saturations 97% to 100%. Weight of 117 pounds. BMI was 24. NEUROLOGIC: The patient is arousable. She looks around. She moans and groans. She is not communicating. She is not following commands. She is otherwise nonverbal. She is questionably if any following commands. She is moving all extremities. She responds to visual threats. Cranial nerve examination; she responds to visual threat. Pupils are sluggishly reactive. I did not see any facial asymmetry. I did not see any ptosis. I did not see any nystagmus. Extraocular movements seemed to be intact. Sensation on the face and scalp seemed to be intact. Hearing seemed to be intact. Tongue was midline. I could not visualize her oropharynx or uvula. Head turning was spontaneous. No neck stiffness was seen. No signs of meningismus. On motor examination, she is moving all extremities. She seems to be withdrawing upper extremities at least 4- and lower extremities at least 3. Sensory examination responds to pain. Romberg could not be evaluated. I could not get any reflexes. Toes are equivocal. DIAGNOSTIC STUDIES LABORATORY RESULTS: Reviewed. White count is 13.5 to 15.6, H and H of 10.6 and 32, platelet count was 193. Urinalysis did not show any acute abnormalities. IMAGING STUDIES: Brain MRI, which was reviewed. IMPRESSION Unit #: [id number] #: [id number] Patient: PARISH ZUNIGA Multiple seizures, possible nonconvulsive status. She is doing much better. I doubt meningitis. She is on antibiotics. Because of her other issues, I have talked to Dr. Robin and I have started her on antiepileptics as Vimpat also. Her EEG was abnormal. Lumbar puncture is up to the primary team and we will see how things go. I hope she is going to get better. I think she may have been a nonconvulsive status and she has left-sided discharges so for, I believe speech is involved because of that and we will see how things bottom turner. I will keep you informed. Call me for any other questions, issues, or concerns. Further treatment will be based on the findings. Discussed with the family in detail and updated them all on the studies. Dictated by... Estela Leal/nivia TD: 06/15/2017 09:03 JOB #: [id number] CONSULTATION REPORT Page 1 of 1 X Gabriele Donis MD CONSULTATION REPORT
--- NOTE | ~2017-06-13 | EKG ---
PATIENT: PARISH ZUNIGA UNIT #: [id number] Ventricular Rate: 137 BPM Atrial Rate: 93 BPM QRS Duration: 86 ms Q-T Interval: 360 ms QTC Calculation(Bezet): 543 ms Calculated R Selma: 7 degrees Calculated T Selma: 69 degrees Diagnosis Line: Supraventricular tachycardia Diagnosis Line: Low voltage QRS Diagnosis Line: Borderline ECG Diagnosis Line: When compared with ECG of 13-JUN-2017 17:41, Diagnosis Line: (unconfirmed) Diagnosis Line: Rate faster Diagnosis Line: Nonspecific T wave abnormality no longer evident Diagnosis Line: in Lateral leads Diagnosis Line: Confirmed by RACHEL JETER MD ([id number]) on Diagnosis Line: 06/15/2017 4:46:43 PM INTERPRETING MD: HARI
--- NOTE | ~2017-06-13 | FU ---
[facility] Nutrition Therapy DATE: 06/19/17 Patient: PARISH SMITHMINGS Physician: REYMUNDO Address: [address] [place] [address] Room/Bed: [address] [place] [address], Zip: [place] [address] Admit Date: 06/13/17 Date of : [birth year] Height: 4 11 Weight: 117 53.5 NUTRITION MONITORING/FOLLOW-UP: Reason: INCIDENT RESPONSE ANALYST REQUEST FOR PUREED DIET EDUCATION RD PROVIDED WRITTEN AND VERBAL PUREED HOME DIET EDUCATION. FAMILY DEMONSTRATED UNDERSTANDING OF THE TOPIC. RD TO REMAIN AVAILABLE. Respectfully, Reanna Szymanski RD, LD Food and Nutritional Services [facility] cc: client file
--- NOTE | ~2017-06-13 | CT71 ---
[facility] A Service of [facility] RADIOLOGY TEXT RESULTS PATIENT: PARISH ZUNIGA LOCATION: [facility] 558-01 : [birth year] UNIT #: [id number] AGE: [address]: Bryanna Arambula MD SEX: F ORDER DR: [id number] [facility] [address] [place], [place] [address] [id number] I MR#: [id number] Acc #: [id number] NAME: PARISH ZUNIGA. : 1930 SEX: F STUDY DATE/TIME: 06/13/2017 18:07 UNIT: [facility] ROOM: [facility] STUDY DESCRIPTION: CT Head Wo Contrast Attending Physician: Carley Robin M.D. Ordering Physician: Dave Bartlett M.D. Primary Care Physician: Lindsey Ramirez M.D. MEDICAL IMAGING REPORT This report is preliminary unless electronic signature is present EXAM Head CT without. HISTORY Altered mental status, increasing lethargy. Increased unresponsiveness today and fever today. Pupillary changes per R.N. TECHNIQUE Routine noncontrast head CT is reviewed. This CT exam was performed with one or more of the following radiation dose reduction techniques: automatic exposure control, adjustment of mA and/or kV according to patient size, and iterative reconstruction. COMPARISON Comparison from 05/22/2017. COMMENT There is no displaced calvarial fracture. The mastoid air cells are clear. There is mild mucosal thickening in the paranasal sinuses. Moderate vascular calcifications at the base of the brain. Patient has had cataract surgery bilaterally. There is atrophy in general. No extraaxial fluid collection. There is moderate white matter low-attenuation which is nonspecific but likely due to small vessel disease. Chronic lacunar type insults likely bilateral basal ganglia. No acute cortical infarct appreciated, but if there is clinical concern for acute CVA, followup imaging is recommended, preferably with an MRI. IMPRESSION 1. No acute intracranial abnormality is appreciated, but if there is [facility] A Service of [facility] RADIOLOGY TEXT RESULTS PATIENT: PARISH ZUNIGA LOCATION: [facility] 558-01 : [birth year] UNIT #: [id number] AGE: [address]: Bryanna Arambula MD SEX: F ORDER DR: clinical concern for acute CVA, followup imaging would be recommended preferably with an MRI. 2. Atrophy, atherosclerotic vascular calcifications and probably sequelae of small vessel disease. Dictated by... Anne Gomez M.D. THIS IS AN ELECTRONICALLY VERIFIED REPORT Anne Gomez M.D. at 06/16/2017 1:57 PM PARTH/michael TD: 06/14/2017 09:36 JOB #: [id number] MEDICAL IMAGING REPORT Page 1 of 1 COPY
--- NOTE | ~2017-06-13 | DS ---
Unit #: [id number] #: [id number] Patient: PARISH TEIXEIRA [id number] [address] [address] [id number] I MR#: [id number] NAME: PARISH TEIXEIRA. ROOM: 220 Age: 87 Sex: F Admission Date: 06/13/2017 : 1930 Discharge Date: 06/19/2017 Attending Physician: Bryanna Arambula M.D. Primary Care Physician: Lindsey Ramirez M.D. DISCHARGE SUMMARY PRINCIPAL DIAGNOSES 1. Seizure with prolonged postictal state. 2. Keppra-induced somnolence with associated hypoactive delirium 3. Right upper lobe lung nodule. 4. Paroxysmal atrial fibrillation, now converted back to normal sinus rhythm, maintained on anticoagulation. 5. Hypokalemia. 6. Hypomagnesemia. 7. Recent history of clostridium difficile with negative clostridium difficile workup this hospitalization. 8. Chronic immobility. 9. Probable underlying mild memory loss. 10. Normocytic anemia. 11. History of hypertension with associated medication-induced hypotension. 12. Seizure disorder. 13. Dysphagia, oropharyngeal phase. 14. Chronic diastolic congestive heart failure with ejection fraction of 55% to 60%. 15. Chronic hypoxic respiratory failure, maintained on 3 liters of oxygen per nasal cannula at bedtime. 16. Chronic obstructive pulmonary disease. 17. Postherpetic trigeminal neuralgia. 18. Moderate protein malnutrition. CONSULTANTS Dr. Donis, neurology. DIAGNOSTIC STUDIES IMAGING: Chest x-ray on June 13, 2017, which was negative for any acute findings. Pulmonary hyperinflation noted. CT of the head without contrast on June 13, 2017 with no acute intracranial abnormality. Atrophy and atherosclerotic vascular calcifications and sequelae of small vessel disease noted. MRI of the brain with and without contrast on June 14, 2017 with no evidence of acute ischemia or acute hemorrhage. Advanced volume loss and chronic white matter ischemic change noted. X-ray of right ribs on June 14, 2017 with no evidence of rib fracture. There is a questionable subcentimeter nodule in the right upper lobe. This appears new since April of 2017. Stable cardiomegaly and thoracic aorta ectasia noted. Unit #: [id number] #: [id number] Patient: PARISH TEIXEIRA CLINICAL HISTORY AND HOSPITAL COURSE Ms. Teixeira is an 87-year-old female who presented to the emergency department with altered mental status. The patient was just discharged from this facility on June 05 following hypotension with associated syncope. She had an EEG that admission, which was abnormal, and she was placed on Keppra as an outpatient. She presented when the patient became suddenly unresponsive. In the emergency department she was found to have a temperature of 103 and was tachycardic. She was subsequently admitted. The patient was placed on broad-spectrum antibiotics, given concern for meningitis, particularly given her altered mental status and fever. However, lumbar puncture was held due to the fact the patient was not having a headache, any neck pain and had no sick contacts, per family. Fever was one time, and her associated leukocytosis resolved quickly. Ultimately, it was not felt the patient had meningitis, and antibiotics were discontinued. There was concern primarily given her abrupt onset in mental status that the patient most likely had recurrent seizure. She was continued on Keppra in addition to Vimpat. However, the patient was excessively somnolent for many days without any other obvious etiology. There were concerns about Keppra causing the "medication," and Keppra was subsequently tapered and discontinued, at which time the patient subsequently awakened. The patient is unable to tolerate Keppra secondary to significant sedation. I am currently in the process of getting Vimpat approved, and the patient will go home with a 2-week trial sample. If unable to afford Vimpat, ultimately, the patient will be placed on Trileptal 150 mg b.i.d. for one week and then titrate up to 300 mg b.i.d. after discussion with Dr. Donis. In regard to the patient's fever, again it was isolated. She did have a questionable pneumonia on her chest x-ray. I think she can have an outpatient chest x-ray done and ensure resolution. She also, again, had a mild leukocytosis upon presentation, but I suspect this was seizure related and has been gone for many, many days even after antibiotics have been discontinued. Can follow up with chest x-ray regarding this right upper lobe nodule on an outpatient basis. The patient was also found to have significant dysphagia. After discussion with family, it appears to be a chronic issue at home. She will be discharged home on a pureed diet and nectar-thickened liquid and will require 1-to-1 assistance and a spoon. The patient was recommended to go to longterm, but family is refusing at this time. She will be discharged home. Please note the patient does have a history of having syncope due to medication-induced hypotension. For this reason, medications were discontinued upon her discharge on the . However, family is significantly concerned because her systolic blood pressures are continually running in the 160s to 170s. I am going to hesitantly reinitiate Metoprolol 25 mg b.i.d., and family has been instructed to monitor blood pressure at least once daily at home. If she has any recurrent hypotension or if blood pressure is becoming more consistently in the 90s to 100, I have instructed them to call their primary care provider, at which time Metoprolol dose can be halved and/or discontinued. The patient's long-term risk from hypertension at this time would likely Unit #: [id number] #: [id number] Patient: PARISH TEIXEIRA L be less than the short-term benefit of avoided hypotension. DISCHARGE CONDITION Stable. DISCHARGE STATUS Discharge to home. DISCHARGE MEDICATIONS 1. Vimpat 100 mg p.o. b.i.d. I will note the patient received a 2-week free sample, and she does have a one-month prescription with one refill pending at [facility]. 2. ProAir RespiClick 2 puffs q.i.d. p.r.n. shortness of breath. 3. Advair 250/50 one puff daily. 4. Tylenol 650 mg p.o. q.6 hours p.r.n. pain. 5. Eliquis 2.5 mg b.i.d. 6. Lortab 5/325 mg 1 tablet p.o. q.8 hours p.r.n. pain. 7. Probiotic 1 p.o. daily. 8. Vitamin C 500 mg p.o. daily. 9. Metoprolol 25 mg b.i.d. DISCHARGE INSTRUCTIONS Patient was instructed to follow a regular diet; however, she should have a pureed diet with nectar thickened liquid. She should try 6 small meals daily and feed slowly, and she should double swallow. She is chronically immobile and will need to be turned by her family. FOLLOW-UP 1. Patient will follow up with her primary care provider in 2 weeks. 2. I would recommend outpatient followup with Dr. Gilmer Torres of outpatient neurology in approximately 4 weeks. NOTE: Time spent on discharge today - 34 minutes. Dictated by... Bryanna Arambula M.D. HARMAN/isac TD: 06/20/2017 11:32 JOB #: [id number] DISCHARGE SUMMARY Page 1 of 1 X Bryanna Arambula MD X DISCHARGE SUMMARY
--- NOTE | ~2017-06-13 | HP ---
Unit #: [id number] #: [id number] Patient: PARISH ZUNIGA [id number] [facility] [address] [place], [place] [address] [id number] MR#: [id number] NAME: PARISH ZUNIGA ROOM: 558 Age: 87 Sex: F Admission Date: 06/13/2017 : 1930 Attending Physician: Carley Robin M.D. Primary Care Physician: Lindsey Ramirez M.D. HISTORY AND PHYSICAL SEE ADDENDUM CHIEF COMPLAINT Altered mental status. HPI The patient is an 87-year-old female with past medical history of abnormal EEG, recurrent C. diff., paroxysmal atrial fibrillation, chronic anticoagulation, CHF, chronic respiratory failure, COPD, probable obstructive sleep apnea, postherpetic neuropathy, chronic immobility who presented to the emergency department for evaluation of the above. History is obtained from chart review and discussion with ER staff as well as from the patient's daughters who are at bedside. Apparently, the patient was in her usual state of health until the day of admission when she became suddenly unresponsive. This is apparently her fourth episode since February of 2017. She, at the time of my evaluation, is nonverbal. She is actually mumbling a few words. Her eyes appear to be somewhat fixed. She is not following commands. Family denies any fever until today. She has not had any cough or cold symptoms. She has been eating. No vomiting. She does have a history of C. diff. Family states that the stools have become thicker and less frequent. She has had less than 3 bowel movements within the past 24 hours. She is immobile at baseline. Of note, the patient was hospitalized at [facility] June 05 through the 2016 for a syncopal episode. She had an EEG June 06, 2017, that was abnormal and showed epileptiform discharges in the left temporal region. She was discharged home on Keppra. Additionally, she was C. diff. positive and discharged home on p.o. vancomycin. Also of note, the patient was placed on chronic anticoagulation with Eliquis due to paroxysmal atrial fibrillation. Family states that she has been taking all of those medications as prescribed. She has never had a MRI. She has not been able to follow up with neurology. In the emergency department, initial temperature was 102.9, pulse 135, blood pressure 129/104, oxygen saturation was 85% on room air. CT of the head showed nothing acute. Chest x-ray showed nothing acute. Urinalysis shows trace protein and 1+ ketones. Laboratory notable for white blood cell count of 15.6 and potassium of 3.3. She was given 2 liters of normal saline as well as 975 mg of Tylenol. Additionally, she received 0.5 mg of Ativan and a gram of Keppra. She is being admitted to [facility] for evaluation and further treatment. Unit #: [id number] #: [id number] Patient: PARISH ZUNIGA PAST MEDICAL HISTORY 1. Admission to [facility] June 05 through the 2016 for syncope. She had an EEG that was abnormal. She was discharged home on Keppra 500 mg p.o. b.i.d., which she has been taking as prescribed. Additionally, she was noted to have C. diff. and was discharged home on p.o. vancomycin. She also was started on Eliquis for paroxysmal atrial fibrillation. 2. 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 She has failed treatment with oral vancomycin as well as oral Flagyl in the past. 3. Paroxysmal atrial fibrillation on chronic anticoagulation with Eliquis. 4. Congestive heart failure. The patient's ejection fraction is 55% to 60% per the discharge summary. 5. Chronic respiratory failure on 3 liters of oxygen at night. 6. COPD. 7. Probable obstructive sleep apnea. 8. Hypertension. PAST SURGICAL HISTORY 1. Cholecystectomy. 2. Right femur surgery. SOCIAL HISTORY The patient lives with her . She is a former smoker. She is immobile. FAMILY HISTORY Noncontributory secondary to age. ALLERGIES No known allergies. MEDICATIONS Home medications per the discharge summary from June 06, 2017 include: 1. ProAir 2 puffs q.i.d. p.r.n. 2. Advair 250/50 one puff daily. 3. Tylenol 650 p.o. q.6 hours p.r.n. 4. Magnesium 400 mg b.i.d. for 7 days. 5. Eliquis 2.5 mg b.i.d. 6. Neurontin 400 mg b.i.d. 7. Lortab 5/325 q.8 hours p.r.n. 8. Keppra 500 mg b.i.d. 9. P.O. vancomycin. REVIEW OF SYSTEMS A complete review of systems is unobtainable from the patient, but negative except as indicated in the HPI. Also, per the discharge summary, syncopal episodes had been attributed to low blood pressure in the past. Antihypertensive medications were discontinued. DIAGNOSTIC STUDIES CARDIOVASCULAR: EKG showed sinus tachycardia with frequent PVCs and a rate of 125 beats per minute. IMAGING: Chest x-ray shows nothing acute. The head CT shows nothing acute. Unit #: [id number] #: [id number] Patient: PARISH ZUNIGA LABORATORY: Troponin is less than 0.05. Complete blood count notable for white blood cell count of 15.6 with 10% bands. Comprehensive metabolic panel notable for a potassium of 3.3, chloride is 98, glucose 112, albumin is 2.9, lactic acid is 1. Urinalysis notable for trace protein and 1+ ketones. PHYSICAL EXAMINATION VITAL SIGNS: Temperature is 102.9, pulse 135, respirations 19, blood pressure 129/104, oxygen saturation initially 85% on room air. GENERAL: The patient is a female who opens eyes to physical stimuli. HEENT: The head is atraumatic. Mucous membranes are moist. NECK: Supple. Trachea is midline. CARDIOVASCULAR: Tachycardic in the 120s. LUNGS: Clear to auscultation bilaterally with no increased work of breathing. ABDOMEN: Soft and tender with bowel sounds present in all four quadrants. EXTREMITIES: Show scattered ecchymoses. NEURO: The patient opens eyes to physical stimuli. She is not following commands. She occasionally mumbles. PSYCH: Unable to assess. SKIN: Demonstrates scattered ecchymosis. ASSESSMENT The patient is an 87-year-old female with: 1. Altered mental status. 2. Abnormal EEG (June 06, 2017). The patient is on Keppra, which she has been taking, 500 mg p.o. b.i.d., with last dose this morning. The patient received 0.5 mg of Ativan as well as a gram of Keppra in the emergency department. 3. Possible sepsis. The patient's initial temperature was 102.9. Chest x-ray and urinalysis are negative. The patient does have a history of recurrent Clostridium difficile, but family reports stools improving. Initial lactic acid is 1. 4. Hypokalemia. The patient's initial potassium is 3.3. 5. Recurrent Clostridium difficile currently receiving p.o. vancomycin. 6. Paroxysmal atrial fibrillation on chronic anticoagulation with Eliquis. 7. Congestive heart failure with ejection fraction of 55% to 60%. 8. Chronic respiratory failure on 3 liters of oxygen per nasal cannula at night. 9. Chronic obstructive pulmonary disease. 10. Probable obstructive sleep apnea. 11. Postherpetic neuropathy. 12. Chronic immobility. PLAN 1. Admit to intermediate level. 2. NPO. 3. Normal saline at 175 mL/hour. 4. Bedrest. 5. Fall precautions. 6. Neuro checks. 7. Seizure precautions. 8. MRI of the brain with and without contrast, seizure protocol. 9. Blood cultures x2. 10. Vancomycin IV and Rocephin IV pending further workup. 11. Consult interventional radiology for lumbar puncture. 12. CSF studies including Gram stain culture and sensitivity, glucose, Unit #: [id number] #: [id number] Patient: PARISH ZUNIGA protein, cell count, and C. diff. antigen test for Strep. pneumoniae, H. flu, E. coli. 13. Sepsis protocol with repeat lactic acid. 14. P.R.N. Tylenol. 15. Check magnesium level. 16. Potassium/magnesium protocol. 17. Serial cardiac enzymes. 18. Supplemental oxygen, 19. P.R.N. DuoNebs. 20. Strict is and Os. 21. Monitor heart rate closely. 22. Check CPK. 23. Repeat labs in the morning. 24. SCDs for DVT prophylaxis. 25. Additional workup and consultants based on above. Dictated by Carley Robin M.D. Maeve TD: 06/14/2017 07:05 JOB #: [id number] ADDENDUM Not mentioned above, but also part of the plan, consult Dr. Donis regarding altered mental status and possible seizure. I spoke with him regarding this patient. In addition to the above, I have started the patient on Vimpat. Please see orders for complete details. Dictated by Estela Thompson TD: 06/14/2017 07:50 JOB #: [id number] HISTORY AND PHYSICAL Page 1 of 1 X Carley Robin MD X HISTORY AND PHYSICAL
--- NOTE | ~2017-06-13 | EE ---
Unit #: [id number] #: [id number] Patient: PARISH ZUNIGA [id number] [address] [address] [id number] I MR#: [id number] NAME: PARISH ZUNIGA. : 1930 SEX: F STUDY DATE/TIME: 06/16/2017 UNIT: C5B ROOM: 558 STUDY DESCRIPTION: EEG Attending Physician: Bryanna Arambula M.D. Referring Physician: Gabriele Donis M.D. Primary Care Physician: Lindsey Ramirez M.D. NEURODIAGNOSTICS REPORT EXAM EEG REASON FOR THE STUDY History of recurrent seizure, rule out status. EEG DESCRIPTION This is an inpatient, digitally recorded multi-montage adult EEG with leads placed according to the International 10-20 System. Hyperventilation and photic stimulation was not done. This EEG shows diffuse background slowing. There seems to be some artifact with more beta activity on one side in some leads with mixed type of picture, more so on the left as compared to the right and the right seemed to have subtle slowing and some slow wave phase reversing but nothing suggesting active seizures or status but PLEDs type activity cannot be absolutely ruled out and it seemed there may be some motion artifact and the patient was moaning throughout the recording. No active seizures, no clinical events. The activity was questionable. Hyperventilation and photic stimulation was not done. IMPRESSION This is an abnormal EEG showing diffuse slowing. There seemed to be some artifact. I did not see any active seizure-like activity but PLEDs cannot be ruled out. Please clinically correlate with the patient's history. Dictated by... Estela Leal/griselda TD: 06/18/2017 05:55 JOB #: [id number] Unit #: [id number] #: [id number] Patient: PARISH ZUNIGA NEURODIAGNOSTICS REPORT Page 1 of 1 X Gabriele Donis MD NEURODIAGNOSTICS REPORT
--- NOTE | ~2017-06-13 | MR17 ---
[facility] A Service of [facility] RADIOLOGY TEXT RESULTS PATIENT: PARISH ZUNIGA LOCATION: C2A : [birth year] UNIT #: [id number] AGE: [address]: Bryanna Arambula MD SEX: F ORDER DR: [id number] [facility] [address] [place], [place] [address] [id number] I MR#: [id number] Acc #: [id number] NAME: PARISH ZUNIGA. : 1930 SEX: F STUDY DATE/TIME: 06/14/2017 0:43 UNIT: C5B ROOM: [facility] STUDY DESCRIPTION: MR Brain WWo Contrast Attending Physician: Carley Robin M.D. Ordering Physician: Carley Robin M.D. Primary Care Physician: Lindsey Ramirez M.D. MRI CENTER REPORT This report is preliminary unless electronic signature is present. EXAM Brain MRI with and without contrast. DATE OF STUDY 06/14/2017 PROCEDURE Routine brain MR with and without contrast including seizure protocol imaging. CLINICAL HISTORY Unable to talk which began approximately 9 hours prior to this exam. FINDINGS The study is heavily motion degraded. The hippocampal formations appear symmetrically somewhat atrophic. There is no compelling evidence of acute restricted diffusion. There is no compelling evidence of acute intracranial hemorrhage. There is advanced volume loss and there are fairly extensive symmetric confluent white matter changes, but no hydrocephalus or extraaxial fluid collection. Patent flow voids are generally seen in the cerebral vessels. Bone marrow signal is normal. Postcontrast images show no convincing evidence of abnormal enhancement. IMPRESSION Heavily motion-degraded exam. No convincing evidence of acute ischemia or acute hemorrhage. Advanced volume loss and chronic white matter change. No convincing evidence of any acute intracranial abnormality or seizure focus, though again the study is heavily motion compromised. Dictated by... [facility] A Service of [facility] RADIOLOGY TEXT RESULTS PATIENT: PARISH ZUINGA LOCATION: C2A : [birth year] UNIT #: [id number] AGE: [address]: Bryanna Arambula MD SEX: F ORDER DR: Nicholas Palm M.D. THIS IS AN ELECTRONICALLY VERIFIED REPORT Nicholas Palm M.D. at 06/19/2017 5:04 PM TEV/tmw TD: 06/14/2017 13:41 JOB #: [id number] MRI CENTER REPORT Page 1 of 1 COPY
--- NOTE | ~2017-06-13 | EKG ---
PATIENT: PARISH ZUNIGA UNIT #: [id number] Ventricular Rate: 125 BPM Atrial Rate: 125 BPM P-R Interval: 120 ms QRS Duration: 82 ms Q-T Interval: 312 ms QTC Calculation(Bezet): 450 ms P [place]: 74 degrees Calculated R [place]: 0 degrees Calculated T [place]: 92 degrees Diagnosis Line: Sinus tachycardia with frequent Premature Diagnosis Line: ventricular complexes Diagnosis Line: Low voltage QRS Diagnosis Line: Nonspecific ST and T wave abnormality Diagnosis Line: Abnormal ECG Diagnosis Line: No previous ECGs available Diagnosis Line: Confirmed by RACHEL JETER MD ([id number]) on Diagnosis Line: 06/15/2017 4:43:14 PM INTERPRETING MD: HARI
[~2017-06-13 17:07] MED LIST changes: +ADVAIR 250-501 EAC1 INH; +ADVAIR 250-501 EACH INH; +ELIQUIS2.5 MG PO; +GABAPENTIN400 MG PO; +MAGNESIUM400 M1 PO; +NEURONTIN PO; +VANCOMYCIN HCL125 MG PO; +XIFAXAN550 MG PO
[2017-06-13 17:49] LABS: BASOPHIL# 0.1 X10e3 (0-0.3); BASOPHIL% 0.5 % (0-2.5); HEMATOCRIT 37.3 % (35.0-45.0); LYMPHOCYTE# 1.2 X10e3 (1.0-3.5); LYMPHOCYTE% 7.9 % (17.0-45.0); MEAN CELL VOLUME 91.9 FL (83-96); MEAN CORPUSCULAR HEMOGLOBIN 29.5 PG (28-34); MEAN CORPUSCULAR HGB CONC 32.1 g/dL (30-36); MONOCYTE# 0.6 X10e3 (0-1.0); NEUTROPHIL# 13.6 X10e3 (1.5-7.1); NEUTROPHIL% 87.6 % (40-75); PLATELET COUNT 225 X10e3 (140-420); RED BLOOD COUNT 4.06 X10e (3.90-5.30); RED CELL DISTRIBUTION WIDTH 13.7 % (11.0-15.5); WHITE BLOOD COUNT 15.6 X10e3 (4.0-10.5)
[2017-06-13 17:50] LABS: DIFF IND YES
[2017-06-13] MEDS ORDERED: LEVETIRACETAM500 M1 PO (17:52)
[2017-06-13] MEDS ORDERED: LOPRESSOR PO (17:53)
[2017-06-13] MEDS ORDERED: COZAAR PO (17:53)
[2017-06-13] MEDS ORDERED: MOBIC PO (17:54)
[2017-06-13 17:58] LABS: POC - CKMB <1.0 ng/mL (0.0-7.9); POC - TROPONIN <0.05 ng/mL (<=0.05)
[2017-06-13 18:15] LABS: URINE SOURCE CATH
[2017-06-13 18:15] LABS: ALBUMIN SERUM 2.9 g/dL (3.5-5.0); BILIRUBIN, DIRECT 0.2 mg/dL (0.0-0.2); BILIRUBIN,INDIRECT 0.7 mg/dL (0.0-0.9); BILIRUBIN,TOTAL 0.9 mg/dL (0.2-2.0); BUN/CREATININE RATIO 18.57; CALCIUM SERUM 8.7 mg/dL (8.4-10.2); CREATININE SERUM 0.7 mg/dL (0.6-1.4); GLOM FILT RATE Estimated 77.4 mL/min (>60); POTASSIUM 3.3 mmol/L (3.5-5.1); PROTEIN TOTAL SERUM 6.7 g/dL (6.0-8.3)
[2017-06-13 18:17] LABS: ANISOCYTOSIS SL; PLATELET ESTIMATE NORMAL (NORMAL)
[2017-06-13 18:23] LABS: URINE APPEARANCE CLEAR; URINE BILIRUBIN NEG (NEG); URINE BLOOD NEG (NEG); URINE COLOR YELLOW; URINE GLUCOSE NEG (NEG); URINE KETONE 1+ (NEG); URINE LEUKOCYTE ESTERASE NEG (NEG); URINE NITRATE NEG (NEG); URINE PROTEIN TRACE (NEG); URINE SPECIFIC GRAVITY 1.016 (1.003-1.035); URINE UROBILINOGEN 0.2 MG/DL (NEG)
[2017-06-13 18:38] LABS: CULTURE INDICATED? NO
[2017-06-14] MEDS ORDERED: PROBIOTIC1 EAC2 PO (00:34)
[2017-06-14] MEDS ORDERED: C COMPLEX500 MG PO (00:35)
[2017-06-14 03:23] LABS: CK TOTAL 16 IU/L (26-140)
[2017-06-14 05:19] LABS: HEMOGLOBIN 10.6 gm/dL (12.0-16.0); MEAN CELL VOLUME 91.7 FL (83-96); MEAN CORPUSCULAR HEMOGLOBIN 30.5 PG (28-34); MEAN CORPUSCULAR HGB CONC 33.3 g/dL (30-36); MEAN PLATELET VOLUME 7.7 FL (6.5-11.5); RED BLOOD COUNT 3.49 X10e (3.90-5.30); RED CELL DISTRIBUTION WIDTH 13.8 % (11.0-15.5); WHITE BLOOD COUNT 13.5 X10e3 (4.0-10.5)
[2017-06-14 06:15] LABS: CK TOTAL 18 IU/L (26-140)
[2017-06-14 07:13] LABS: ALBUMIN SERUM 2.3 g/dL (3.5-5.0); BILIRUBIN,TOTAL 0.8 mg/dL (0.2-2.0); BUN/CREATININE RATIO 21.66; CREATININE SERUM 0.6 mg/dL (0.6-1.4); GLOM FILT RATE Estimated 81.4 mL/min (>60); MAGNESIUM 1.6 mg/dL (1.6-3.0); POTASSIUM 3.7 mmol/L (3.5-5.1); PROTEIN TOTAL SERUM 5.2 g/dL (6.0-8.3)
[2017-06-15 05:09] LABS: HEMATOCRIT 31.2 % (35.0-45.0); HEMOGLOBIN 10.1 gm/dL (12.0-16.0); MEAN CELL VOLUME 91.5 FL (83-96); MEAN CORPUSCULAR HEMOGLOBIN 29.8 PG (28-34); MEAN CORPUSCULAR HGB CONC 32.6 g/dL (30-36); RED BLOOD COUNT 3.4 X10e (3.90-5.30); RED CELL DISTRIBUTION WIDTH 13.7 % (11.0-15.5); WHITE BLOOD COUNT 14.1 X10e3 (4.0-10.5)
[2017-06-15 07:07] LABS: ALBUMIN SERUM 2.3 g/dL (3.5-5.0); BILIRUBIN,TOTAL 0.4 mg/dL (0.2-2.0); CALCIUM SERUM 8.3 mg/dL (8.4-10.2); CREATININE SERUM 0.5 mg/dL (0.6-1.4); GLOM FILT RATE Estimated 86.4 mL/min (>60); MAGNESIUM 1.4 mg/dL (1.6-3.0); POTASSIUM 3.5 mmol/L (3.5-5.1); PROTEIN TOTAL SERUM 5.7 g/dL (6.0-8.3)
[2017-06-16 06:21] LABS: HEMATOCRIT 30.1 % (35.0-45.0); HEMOGLOBIN 10.1 gm/dL (12.0-16.0); MEAN CELL VOLUME 91.1 FL (83-96); MEAN CORPUSCULAR HEMOGLOBIN 30.5 PG (28-34); MEAN CORPUSCULAR HGB CONC 33.4 g/dL (30-36); MEAN PLATELET VOLUME 7.8 FL (6.5-11.5); RED BLOOD COUNT 3.31 X10e (3.90-5.30); RED CELL DISTRIBUTION WIDTH 13.5 % (11.0-15.5); WHITE BLOOD COUNT 7.2 X10e3 (4.0-10.5)
[2017-06-16 06:47] LABS: BUN/CREATININE RATIO 13.33; CALCIUM SERUM 8.1 mg/dL (8.4-10.2); CREATININE SERUM 0.6 mg/dL (0.6-1.4); GLOM FILT RATE Estimated 81.4 mL/min (>60); POTASSIUM 3.2 mmol/L (3.5-5.1)
[2017-06-17 06:34] LABS: HEMATOCRIT 28.5 % (35.0-45.0); HEMOGLOBIN 9.4 gm/dL (12.0-16.0); MEAN CELL VOLUME 91.3 FL (83-96); MEAN CORPUSCULAR HGB CONC 32.9 g/dL (30-36); MEAN PLATELET VOLUME 7.9 FL (6.5-11.5); RED BLOOD COUNT 3.12 X10e (3.90-5.30); RED CELL DISTRIBUTION WIDTH 13.5 % (11.0-15.5); WHITE BLOOD COUNT 5.8 X10e3 (4.0-10.5)
[2017-06-17 07:09] LABS: BUN/CREATININE RATIO 16.66; CALCIUM SERUM 8.1 mg/dL (8.4-10.2); CREATININE SERUM 0.6 mg/dL (0.6-1.4); GLOM FILT RATE Estimated 81.4 mL/min (>60); MAGNESIUM 2.1 mg/dL (1.6-3.0); POTASSIUM 3.7 mmol/L (3.5-5.1)
[2017-06-18 06:32] LABS: BASOPHIL# 0.1 X10e3 (0-0.3); BASOPHIL% 1.1 % (0-2.5); EOSINOPHIL# 0.1 X10e3 (0-0.7); EOSINOPHIL% 1.9 % (0.0-7.0); HEMATOCRIT 29.3 % (35.0-45.0); HEMOGLOBIN 9.6 gm/dL (12.0-16.0); LYMPHOCYTE# 2.1 X10e3 (1.0-3.5); LYMPHOCYTE% 28.2 % (17.0-45.0); MEAN CELL VOLUME 90.8 FL (83-96); MEAN CORPUSCULAR HEMOGLOBIN 29.6 PG (28-34); MEAN CORPUSCULAR HGB CONC 32.6 g/dL (30-36); MEAN PLATELET VOLUME 8.7 FL (6.5-11.5); MONOCYTE# 0.6 X10e3 (0-1.0); MONOCYTE% 7.7 % (3.0-12.0); NEUTROPHIL# 4.6 X10e3 (1.5-7.1); NEUTROPHIL% 61.1 % (40-75); PLATELET COUNT 209 X10e3 (140-420); RED BLOOD COUNT 3.23 X10e (3.90-5.30); RED CELL DISTRIBUTION WIDTH 13.6 % (11.0-15.5); WHITE BLOOD COUNT 7.5 X10e3 (4.0-10.5)
[2017-06-18 06:37] LABS: DIFF IND NO
[2017-06-18 07:07] LABS: CALCIUM SERUM 8.2 mg/dL (8.4-10.2); CREATININE SERUM 0.5 mg/dL (0.6-1.4); GLOM FILT RATE Estimated 86.4 mL/min (>60); MAGNESIUM 1.6 mg/dL (1.6-3.0)
[2017-06-19] MEDS ORDERED: VIMPAT100 MG PO (14:40)
[2017-06-19] MEDS ORDERED: METOPROLOL TAR25 MG PO (14:40)
== END 2017-06-19 16:00 | disposition home or self-care (01) | DRG 100 ==
LOC: CED 17:07 → CEDOF 19:30 → C2A 19:30 → CEDOF 20:05 → CED 20:05 → CEDOF 22:00 → C5B 22:00 → C2A 06-18 15:18
PROVIDERS: Emergency Medicine; Family Medicine; Internal Medicine; Psychiatry & Neurology Neurology
DX: G40.909 Epilepsy, unspecified, not intractable, without status epilepticus (principal); G92 Toxic encephalopathy; J96.11 Chronic respiratory failure with hypoxia; E44.0 Moderate protein-calorie malnutrition; I48.0 Paroxysmal atrial fibrillation; I50.32 Chronic diastolic (congestive) heart failure; R13.12 Dysphagia, oropharyngeal phase; I10 Essential (primary) hypertension; E83.42 Hypomagnesemia; F19.921 Other psychoactive substance use, unspecified with intoxication with delirium; J44.9 Chronic obstructive pulmonary disease, unspecified; Z79.01 Long term (current) use of anticoagulants; G47.33 Obstructive sleep apnea (adult) (pediatric); Z90.49 Acquired absence of other specified parts of digestive tract; Z87.891 Personal history of nicotine dependence; E87.6 Hypokalemia; M62.3 Immobility syndrome (paraplegic); G50.8 Other disorders of trigeminal nerve; E16.2 Hypoglycemia, unspecified; D64.9 Anemia, unspecified; R91.1 Solitary pulmonary nodule; Z68.23 Body mass index [BMI] 23.0-23.9, adult
CPT/HCPCS: 36415; 51701; 70450; 70553; 71010; 71100; 74230; 80048; 80053; 80076; 80202; 81003; 82550; 82553; 82607; 82746; 82947; 83605; 83735; 84132; 84484; 85025; 85027; 87040; 87493; 92526; 92610; 92611; 93005; 94640; 94760; 95816; 99285; A9577; C9254; G8996-GN; G8997-GN; J0360; J0696; J1650; J1953; J2060; J2405; J3370; J3475; J3490